=== PATIENT | male | born 1950 | race African-American/Black ===

== ENCOUNTER 2021-07-22 07:25 | Day surgery (SDC) | payer OTHER ==
--- NOTE | 2021-07-20 15:55 | RAD REPORT ---
EXAM DESCRIPTION: RAD - Chest Pa And Lat (2 Views) - 07/20/2021 3:48 pm CLINICAL HISTORY: pre op pending hernia surgery Chest pain. COMPARISON: Abdomen 1 View (KUB) dated 01/22/2019; Abdomen 1 View (KUB) dated 05/19/2017; Knee Left Wo Cont dated 08/17/2017 FINDINGS: The lungs are clear. The heart is normal in size. No displaced fractures. IMPRESSION: No acute or concerning finding suspected.
[2021-07-20 16:24] LABS: Hematocrit 37.7 % (39.6-49.0); Lymphocytes % 26.5 % (15.3-44.8); MPV 8.7 fL (7.6-11.3); RBC Red Blood Cell Count 4.93 M/uL (4.33-5.43)
[2021-07-20 16:37] LABS: Potassium 4.6 mmol/L (3.5-5.1)
[2021-07-22] MEDS ORDERED: NA CHLORIDE 0.9% 1,000 ML ONE ×2 (07:34→10:49)
[2021-07-22] MEDS ORDERED: LIDOCAINE 2% MPF 5 ML VIAL ONE (08:51)
[2021-07-22] MEDS ORDERED: MIDAZOLAM HCL 2 MG/2 ML INJ ONE (08:51)
[2021-07-22] MEDS ORDERED: ONDANSETRON 4 MG/2 ML VIAL ONE (08:51)
[2021-07-22] MEDS ORDERED: ROCURONIUM 50 MG/5 ML VIAL IV ONE (08:51)
[2021-07-22] MEDS ORDERED: propofoL 200 MG/20 ML VIAL IV ONE (08:51)
[2021-07-22] MEDS ORDERED: FENTANYL CITR 100 MCG/2 ML ONE ×2 (08:51→10:46)
[2021-07-22] MEDS ORDERED: dexAMETHasone 10 MG/ML VIAL ONE (08:51)
[2021-07-22] MEDS: CEFAZOLIN SODIUM 1 GM/VIAL ONE ×2 (09:22→09:55)
[2021-07-22] MEDS: BUPIVACAINE 0.5% Inj,MDV 50 mL VIAL ONE ×2 (09:23→10:05)
[2021-07-22] MEDS ORDERED: Ringers Lactate 0 ML IV ONE (10:24)
--- NOTE | 2021-07-22 10:53 | P.BOP ---
Preoperative diagnosis: tender incarcerated large left inguinal hernia Postoperative diagnosis: same Primary procedure: Open repair tender incarcerated large left inguinal hernia with mesh [employer]opolit[employer] Teacher: SOLOMON GASPAR (BATTERY PLATE REMOVER) Estimated blood loss: <10cc Specimen: lipoma of cord Findings: as above , Anesthesia: General Complications: None Implants: mesh plug and sheet Transferred to: Recovery Room Condition: Good
[2021-07-22] MEDS ORDERED: KETOROLAC 30 MG/ML INJ ONE (10:58)
[2021-07-22] MEDS ORDERED: NEOSTIGMINE 1 MG/ML -5 ML ONE (11:02)
[2021-07-22] MEDS ORDERED: GLYCOPYRROLATE 0.2 MG/ML SYR ONE (11:03)
[2021-07-22 13:13] VITALS: BP 165/91; O2SAT 100
[2021-07-22 13:31] VITALS: TEMP 97.4
--- NOTE | 2021-07-23 10:09 | DS ---
Date of Discharge: 07/22/2021 Diagnosis: Tender incarcerated large left inguinal hernia. Procedure: Open repair of tender incarcerated large left inguinal hernia with mesh. Disposition: Home. Activity: As tolerated. No heavy lifting. Plan: Follow up in my office. Call for appointment at [phone]. Keep area dry for 48 hours, then m ay shower. Medications: For medications, see orders. PATRICIO/HAO Voice ID: [id number] Report ID: [id number]
--- NOTE | 2021-07-23 10:15 | OP ---
Date of Procedure: 07/22/2021 Surgeon: Evans Almanza MD Top Cager: Perla Shelton. Preoperative Diagnosis: Tender incarcerated large left inguinal hernia. Postoperative Diagnosis: Tender incarcerated large left inguinal hernia. Procedure: Open repair of tender incarcerated large left inguinal hernia with mesh laparo scopic procedure. Estimated Blood Loss: Less than 10 mL. Specimen: Lipoma of the cord. Findings: Incarcerated omentum reduced into the abdominal cavity. Hernia sac was imbricated. Lipom a of the cord was ligated. Anesthesia: General plus local. Implant: Mesh, plug, and sheath. Complications: None. Estimated Blood Loss: Less than 10 mL. History Of Present Illness: This is the case of a 71-year-old patient, who comes to us with a large tender left inguinal hernia. Benefits, alternatives, and risks of laparoscopic possible open left in guinal hernia repair with mesh fully explained, which include, but not limited to infection, bleeding , damage to adjacent structures, anesthesia complication, chronic pain, chronic numbness, recurrence, GA, and even . He also understands this may not relieve any symptoms. He might need more than one surgical intervention. He also understands we may use mesh in that region. Mesh pros and cons were discussed with the patient. All questions were answered to his satisfaction and he did allow th e use of mesh. He has elected [facility] as a surgery center of choice after allowed us to select hospice over the area. Procedure In Detail: The patient was brought to the operating room, placed in supine position. Anes thesia was done without complication. Abdomen was prepped and draped in the usual sterile fashion. A time-out was called. Local anesthesia was applied in the infraumbilical region. Incision was rowell ied down to fascia. We found anterior rectus sheath fascia which basically we opened, retracted the muscle laterally to expose the posterior rectus sheath. A space maker balloon trocar was placed in t hat area, directed towards the pubis symphysis. A camera was placed in and then we started insufflat ion. The expansion of balloon was done under direct visualization. After we inspected the area of t he space that we have in that area, due to the size of the hernia most likely, it does not expand the way that I can do surgery safely through this space. So, I proceeded then to switch from laparoscop ic to open technique. The trocars were removed under direct visualization. No bleeding. The fascia was closed with #1 Vicryl and subcutaneous tissue closed with 3-0 chromic. We proceeded to obtain i nstrument count and then proceed with the incision in the left inguinal region. The incision was car ried down to Nicholas fascia until we find the external oblique aponeurosis and opened in direction of its fibers to connect to the superficial inguinal ring. The ilioinguinal nerve and iliohypogastric n erve were protected behind external oblique aponeurosis. [place] was placed around the spermatic cor d. We noticed the hernia sac was carefully imbricated after inspecting and noticed just omentum in t hat area, so we reduced the omentum, imbricated the hernia sac. The lipoma of the cord was identifie d and dissected free from the spermatic cord which structures were protected at all times. The lipom a of the cord was ligated with 0 chromic. At that moment, I proceeded then to place a mesh plug over the deep inguinal ring, secured in place with VersaTack staple device making sure once again the str uctures are protected of the spermatic cord. Then, we placed a mesh sheet on the floor of the canal connecting that to the pubic tubercle, shelving the edge of the inguinal ligament, transversalis fasc ia, and the loops around the spermatic cord without strangulation. This was fixated using VersaTack staple. No bleeding. Hernia sac is still imbricated. No bleeding. No other hernias found. At glenny t moment, I proceeded to remove the [place] placed in the ilioinguinal nerve and iliohypogastric nerv e back into the inguinal canal, reconstructed the superficial inguinal ring and closed the external o blique aponeurosis making sure there was no nerve involved. Area was irrigated. Local anesthesia wa s applied again. Then, used a 3-0 chromic for the subcutaneous tissue and guillermina for the skin. Bryon e for the umbilical area. The patient tolerated the procedure well. At the end of the case, testicl es were in the scrotum. The patient was sent to recovery in stable condition. PATRICIO/HAO Voice ID: [id number] Report ID: [id number]
== END 2021-07-22 13:18 | disposition home or self-care (01) ==
LOC: OR 07:25
PROVIDERS: ATTEND Surgery
PROC: 0YU60JZ Supplement Left Inguinal Region with Synthetic Substitute, Open Approach (ICD-10-PCS; principal; 2021-07-22 10:15)
DX: K40.30 Unilateral inguinal hernia, with obstruction, without gangrene, not specified as recurrent (principal); I10 Essential (primary) hypertension; I48.91 Unspecified atrial fibrillation; E11.9 Type 2 diabetes mellitus without complications; E78.00 Pure hypercholesterolemia, unspecified; Z20.822 Contact with and (suspected) exposure to COVID-19
CPT/HCPCS: 85025; 80048; 36415; 82947 ×2; 88302; 71046; 49507; U0003; J2704; J2250; J3010 ×2; J1100; J2710; J7030 ×2; J2405; J0690; J7120

== ENCOUNTER → 2022-07-14 | Day surgery (SDC) | payer OTHER ==
--- NOTE | 2022-06-15 13:00 | RAD REPORT ---
EXAM DESCRIPTION: RAD - FINE NEEDLE ASPIRATION 2ND LES - 06/15/2022 10:49 am CLINICAL HISTORY: 2ND LESION COMPARISON: Guided FNA Non Breast dated 06/15/2022; Thyroid Para Parotid Gland dated 05/27/2022 FINDINGS: Preoperative diagnosis: Left lobe and isthmic thyroid nodules. Post operative diagnosis: Same. Conscious Sedation: None Fluoroscopy time: None Contrast used: None Estimated blood loss: 0 mL Specimens:As below The anterior neck was prepped and draped in the usual sterile fashion. 1% lidocaine was infiltrated i nto the subcutaneous tissues for local anesthesia. Real time ultrasound scanning of the thyroid gland again demonstrated a predominantly solid isoechoic to hyperechoic taller than wide nodule at the inf erior left lobe, and a spongiform nodule within the left aspect of the isthmus. Under ultrasound guid ance, using a total of 5 25 gauge needles, attention was initially directed to the left lobe nodule. A total of 5 fine needle aspiration biopsies were obtained, and sent to pathology for evaluation. Att ention was then directed to the isthmic nodule. Under ultrasound guidance and using a total of 4 25 g auge needles, fine needle aspiration biopsies were obtained of the lesion. The patient tolerated the procedure well. There were no complications. IMPRESSION: Successful ultrasound-guided fine-needle aspiration biopsy/ cytology of the left thyroid lobe and isthmic nodules as above.
--- NOTE | 2022-06-15 13:01 | RAD REPORT ---
EXAM DESCRIPTION: US - Guided FNA Non Breast - 06/15/2022 10:07 am CLINICAL HISTORY: E04.2 COMPARISON: Guided FNA Non Breast dated 06/15/2022; Thyroid Para Parotid Gland dated 05/27/2022 FINDINGS: Preoperative diagnosis: Left lobe and isthmic thyroid nodules. Post operative diagnosis: Same. Conscious Sedation: None Fluoroscopy time: None Contrast used: None Estimated blood loss: 0 mL Specimens:As below The anterior neck was prepped and draped in the usual sterile fashion. 1% lidocaine was infiltrated i nto the subcutaneous tissues for local anesthesia. Real time ultrasound scanning of the thyroid gland again demonstrated a predominantly solid isoechoic to hyperechoic taller than wide nodule at the inf erior left lobe, and a spongiform nodule within the left aspect of the isthmus. Under ultrasound guid ance, using a total of 5 25 gauge needles, attention was initially directed to the left lobe nodule. A total of 5 fine needle aspiration biopsies were obtained, and sent to pathology for evaluation. Att ention was then directed to the isthmic nodule. Under ultrasound guidance and using a total of 4 25 g auge needles, fine needle aspiration biopsies were obtained of the lesion. The patient tolerated the procedure well. There were no complications. IMPRESSION: Successful ultrasound-guided fine-needle aspiration biopsy/ cytology of the left thyroid lobe and isthmic nodules as above.
== END ==
LOC: FNA 08:00
PROVIDERS: ATTEND Family Medicine
PROC: 0GBG3ZX Excision of Left Thyroid Gland Lobe, Percutaneous Approach, Diagnostic (ICD-10-PCS; principal; 2022-07-14)
DX: E04.2 Nontoxic multinodular goiter (principal)
CPT/HCPCS: 10006; 88162; 88305

== ENCOUNTER 2022-08-27 07:40 | Day surgery (SDC) | payer OTHER ==
--- NOTE | 2022-08-25 08:22 | EKG ---
Test Date: 2022-08-23 Test Time: 16:33:15 Hoisting Machine Operator: [id number] MEASUREMENT RESULTS: Intervals: Rate: 85 WY: 180 QRSD: 90 QT: 354 QTc: 421 [place]: P: 60 WY: 180 QRS: -37 T: 23 INTERPRETIVE STATEMENTS: Normal sinus rhythm Left axis deviation Abnormal ECG Compared to ECG 02/10/2016 15:22:15 Left-axis deviation now present Fusion complex(es) no longer present Left anterior fascicular block no longer present Electronically Signed On 08-25-22 08:18:15 CDT by Nir Farrell
[2022-08-27] MEDS ORDERED: NA CHLORIDE 0.9% 1,000 ML ONE (08:02)
[2022-08-27] MEDS ORDERED: propofoL 200 MG/20 ML VIAL IV ONE ×2 (09:28→10:33)
[2022-08-27] MEDS ORDERED: FENTANYL CITR 100 MCG/2 ML ONE ×2 (09:28→10:35)
[2022-08-27] MEDS ORDERED: ONDANSETRON 4 MG/2 ML VIAL ONE (09:28)
[2022-08-27] MEDS ORDERED: ROCURONIUM 50 MG/5 ML VIAL IV ONE (09:32)
[2022-08-27] MEDS ORDERED: LIDOCAINE HCL/EPINEPHRINE 20 ML MDV ONE (09:38)
[2022-08-27] MEDS ORDERED: SUCCINYLCHOLINE 20 MG/ML (10 ML) IV ONE (09:43)
[2022-08-27] MEDS ORDERED: GLYCOPYRROLATE 0.2 MG/ML SYR ONE (11:08)
[2022-08-27] MEDS ORDERED: Phenylephrine HCl 10 MG/ML 1 ML VIAL ONE (11:09)
[2022-08-27] MEDS ORDERED: NS 0.9% VIAL 10 ML ONE (11:09)
[2022-08-27] MEDS: NA CHLORIDE 0.9% 1,000 ML ONE ×2 (11:40→11:57)
[2022-08-27] MEDS ORDERED: Mastisol Adhesive Liq ONE (11:41)
--- NOTE | 2022-08-27 12:19 | P.OP ---
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 The neck was palpated with confirmation of the isthmus nodule but the left mass was difficult to discern. The neck was cleaned with alcohol and the planned incision site was injected with 3ml of 1% lidocaine with epinephrine. The neck was prepped with Betadine and draped in a sterile fashion. A 4-5 cm low collar incision was made through the skin with a 15 blade scalpel and the subcutaneous fat and platysma was divided with bovie electrocuatery. The subplatysmal flaps were elevated with blunt dissection and bovie cautery. The strap muscles were identified in the midline and retracted laterally on the left. The 1.5cm isthmus nodule was identified and the soft tissues elevated from the left thyroid lobe laterally and along the inferior pole using blunt dissection and the Ligasure. The superior aspect of the isthmus included a moderate sized pyramidal lobe which was carefully dissection and included with the specimen. The [place] was used to retract the left strap muscles and the left thyroid was noted to wrap posteriorly. The superior pole was identified and seemed to include a palpable nodule of about 1cm. The Ligasure was used to dissection and free the superior pole. Attention was then turned to the isthmus with decision to include this nodule in the specimen. The soft tissue attachments above and below the isthmus were divided and the isthmus was divided with the [place] on the right side of the nodule. The isthmus was elevated off the anterior wall of the trachea using Ligasure. The thyroid lobe was then carefully dissected in the area of Rojas's ligament, with Ligasure of the thyroid tissue to avoid injury to the recurrent laryngeal nerve. The specimen was then elevated from posterior soft tissue attachments, taking care to leave the visualized superior parathyroid gland in situ. After removal, the surgical cavity was thoroughly irrigated with sterile saline and suction. Careful inspection revealed no evidence of additional bleeding. Palpation of the right thyroid revealed no concerning or firm masses. During the course of dissection, the left recurrent laryngeal nerve was not specifically identified. A careful inspection revealed areas of fascia and soft tissue. I elected to avoid dissection in the interest of avoiding injury at this point in the case. A 10 English round IZABELA drain was placed in the left neck. A single Vicryl suture was used to approximate the strap muscles in the midline. The incision was closed in a layered fashion using 4-0 Vicryl deep sutures and Monocryl subcuticular sutures. The incision was then cleaned and dressed with Mastisol and Steri-Strips. Due to the patient's comorbid medical conditions including atrial fibrillation requiring anticoagulation, he has an increased risk of bleeding and will be placed under observation overnight. If the patient does well he will be discharged in the morning. Complications: None Drain(s): IZABELA drain Transferred to: Recovery Room Condition: Good
[2022-08-27] MEDS: HYDROMORPHONE HCL 1 MG/ML INJ ONE ×2 (12:25→12:30)
[2022-08-27 14:14] VITALS: BMI 32.0
[2022-08-27] MEDS: NA CHLORIDE 0.9% 1,000 ML IV SCH ×2 (15:05→23:00)
[2022-08-27] MEDS ORDERED: TRAMADOL HCL 50 MG TAB PO PRN (15:55)
[2022-08-27] MEDS ORDERED: GLUCAGON 1 MG/VIAL IM PRN (16:01)
[2022-08-27] MEDS ORDERED: D50W 25 GM/50 ML SYRINGE IV PRN (16:01)
--- NOTE | 2022-08-27 16:07 | P.CNS ---
Date of Consult: 08/27/22 Reason for Consult: Medical management Requesting Physician: Flory Acosta Chief Complaint: s/p Left hemithyroidectomy & isthmusectomy History of Present Illness: Patient is a 72yo who Has an extensive cardiac history who presented to the hospital for an elective hemithyroidectomy.Patient was found in the outpatient setting to have a couple of thyroid nodules that were being worked up for malignancy. Patient has a history of atrial fibrillation, HTN, and DM2. Patient is on antihypertensives therapy and anticoagulation. Patient also has a history of diabetes and is on oral hypoglycemic agents which we will resume. Patient denies any shortness of breath. Patient has done well postoperatively. He has mild complaints of pain but he is really quiet and not really saying much at this time. His states that this is his baseline mannerism. We will continue to monitor patient overnight. Resume most of his home medications at this time but will hold off on anticoagulants pending his labs. If everything looks good tomorrow then we should be able to resume anticoagulation in a.m. Allergies No Known Allergies Allergy (Verified 08/27/22 11:52) Home Medications: Atorvastatin Calcium [Lipitor] 20 mg PO BEDTIME 02/10/16 Metformin HCl [Glucophage] 1,000 mg PO BID 02/10/16 Nateglinide [Starlix] 120 mg PO TID 02/10/16 Carvedilol [Coreg] 12.5 mg PO BID 07/20/21 Irbesartan 150 mg PO BID 07/20/21 Rivaroxaban [Xarelto] 20 mg PO DAILY 07/20/21 Verapamil HCl [Verelan Pm] 300 mg PO DAILY 07/20/21 glipiZIDE [Glipizide] 10 mg PO BID 07/20/21 Levothyroxine [Synthroid] 0.112 mg PO DAILY 08/23/22 - Past Medical/Surgical History Diabetic: Yes -: hypertension -: hypothyroidism -: dyslipidemia -: atrial fibrillation Past Surgical History: Patient denies surgical history - Family History Father Family History: Reviewed- Non-Contributory - Social History Smoking Status: Former smoker Alcohol use: Yes CD- Drugs: No Place of Residence: Home Review of Systems 10-point ROS is otherwise unremarkable Physical Examination Temp Pulse Resp BP Pulse Ox 97.9 F 75 16 155/77 H 08/27/22 13:07 08/27/22 13:07 08/27/22 13:07 08/27/22 13:07 General: Alert, In no apparent distress, Oriented x3 HEENT: Atraumatic, PERRLA, Mucous membr. moist/pink, EOMI, Sclerae nonicteric Neck: Supple, 2+ carotid pulse no bruit, No LAD, Other (IZABELA drain in place), Without JVD or thyroid abnormality Respiratory: Clear to auscultation bilaterally, Normal air movement Cardiovascular: Regular rate/rhythm, Normal S1 S2 Gastrointestinal: Normal bowel sounds, No tenderness Musculoskeletal: No tenderness Integumentary: No rashes Neurological: Normal gait, Normal speech, Normal tone, Normal affect Lymphatics: No axilla or inguinal lymphadenopathy - Problems (1) S/P partial thyroidectomy Current Visit: Yes Status: Acute (2) Thyroid nodule Current Visit: Yes Status: Acute (3) Atrial fibrillation Current Visit: Yes Status: Acute (4) HTN (hypertension) Current Visit: Yes Status: Acute (5) DM2 (diabetes mellitus, type 2) Current Visit: Yes Status: Acute Conclusions/ Impression: Plan: 1. Resume antihypertensive and hypoglycemic agents 2. Resume anticoagulation in 24 to 48 hours 3. Monitor labs in a.m. 4. Anticipate discharge with outpatient follow-up with ENT for biopsy results 5. Encourage patient to get out of bed into a chair today and start ambulating in the morning 6. GI DVT prophylaxis as needed Critical Care: No Time Spent Managing Pts care (In Minutes): 40
[2022-08-27] MEDS ORDERED: D10W 125 ML IV PRN (16:12)
[2022-08-27] MEDS ORDERED: carvediloL 12.5 MG TAB PO SCH (17:00)
[2022-08-27] MEDS ORDERED: METFORMIN HCL 500 MG TAB PO SCH (17:00)
[2022-08-27] MEDS: INSULIN -REGULAR HUMAN 50 UNIT/0.5 ML ML SQ SCH ×2 (18:09→20:39)
[2022-08-27] MEDS ORDERED: VALSARTAN 80 MG TAB PO SCH (21:00)
[2022-08-27] MEDS ORDERED: glipiZIDE 5 MG TAB PO SCH (21:00)
[2022-08-27] MEDS ORDERED: ATORVASTATIN 20 MG TAB PO SCH (21:00)
[2022-08-27 22:39] VITALS: O2SAT 98
[2022-08-28] MEDS ORDERED: LEVOTHYROXINE SOD 0.112 MG TAB PO SCH (06:30)
[2022-08-28 06:39] LABS: Absolute Lymphocytes (CBC) 2.2 K/uL (0.7-4.9); Hematocrit 34.6 % (39.6-49.0); Lymphocytes % 28.7 % (15.3-44.8); MCV 76.6 fL (80-100); MPV 8.6 fL (7.6-11.3); RBC Red Blood Cell Count 4.52 M/uL (4.33-5.43)
[2022-08-28 06:47] LABS: Protime INR 1.14
[2022-08-28 06:53] LABS: Magnesium 1.5 mg/dL (1.6-2.4); Phosphorus 3.2 mg/dL (2.5-4.9); Potassium 3.7 mEq/L (3.5-5.1)
[2022-08-28] MEDS ORDERED: Magnesium Sulfate 2gm IVPB 2 G/50 ML BAG IV ONE (06:54)
--- NOTE | 2022-08-28 07:32 | P.PN ---
Date of Service: 08/28/22 POD 1 L hemithyroidectomy. No complaints. No overnight events. No PO or IV pain medications overnight. Bal PO including crackers and solid foods and liquids. NAD. Neck flat and incision C/D/I with steristrips. Mild to minimal TTP. IZABELA with scant serosanginous fluid and total output 60ml since surgery. Strong voice without breathiness. Vitals stable. Labs reviewed - blood sugars elevated and some anemia - patient/ notified and will defer to outpatient/PCP evaluation. A: Stable s/p hemithyroidectomy P: D/C home today. Resume home meds including anticoagulants. FU with Dr Story on Tuesday for drain removal as scheduled. Plan OTC/Tylenol PRN pain and contact Dr Acosta if any stronger medication in needed.
[2022-08-28 08:06] VITALS: BP 136/56; TEMP 97.9
[2022-08-28] MEDS ORDERED: RIVAROXABAN 20 MG TABLET PO SCH (09:00)
[2022-08-28] MEDS ORDERED: VERAPAMIL HCL 300 MG PO SCH (09:00)
[2022-08-29] MEDS ORDERED: RIVAROXABAN 20 MG TABLET PO SCH (09:00)
== END 2022-08-28 08:30 | disposition home or self-care (01) ==
LOC: OR 07:40 → 4TH 13:07 → OR 08-28 08:30
PROVIDERS: ATTEND Otolaryngology
PROC: 0GTJ0ZZ Resection of Thyroid Gland Isthmus, Open Approach (ICD-10-PCS; 2022-08-27)
PROC: 0GTG0ZZ Resection of Left Thyroid Gland Lobe, Open Approach (ICD-10-PCS; principal; 2022-08-27 09:00)
DX: E04.1 Nontoxic single thyroid nodule (principal)
CPT/HCPCS: 60225; 93005; 85025; 80048; 36415; 83735; 84100; 85610; 82947 ×6; 88307; 85730; J1815 ×2; A4216; J2704 ×2; J2370; J3010 ×2; J1170; J2405; J7030 ×3

== ENCOUNTER 2023-09-06 15:41 | Inpatient (IN) | payer OTHER ==
--- OUTSIDE RECORDS SUMMARY | 2023-09-06 15:45 | XMS REPORT | Continuity of Care Document ---
Author Name Unknown Address [address] [facility] [place] [address] [facility] thconnect Address [address] [facility] [address] [place] [address] Care Team Providers Care Horse Racing Manager Name Role Phone Titus Hernandez Attending Clinician UnavailTitus Lantigua Admitting Clinician Kash scruggs Payers Payer Name Policy Type Policy Number Effective Date Expirati on Date Source Allergies, Adverse Reactions, Alerts Allergy Name Allergy Type Status Severity Reaction(s) Onset Date Inactive Date Treating Clinician Comments Source No Known Drug Allergie s DA Active U 09-26 00:00: 00 [facility] No Known Drug Allergie s DA Active U 09-26 00:00: 00 [facility] No Known Drug Allergie s DA Active U 0 09-22 00:00: 00 [facility] Encounters Start Date/Time End Date/Time Encounter Type Admission Type Attending Clinicians Care Facility Care Department Encounter ID Source 2021-02-02 06:26:00 2021-02-03 10:49:00 Inpatient Titus Sol TELE [id number] [facility] 2021-02-02 06:26:00 2021-02-03 10:49:00 Inpatient Titus Sol TELE [id number] [facility] Results Test Description Test Time Test Comments Results Result Co mments Source GLUCOSE BEDSIDE [id number] 08:05:00* Test Item Value Reference Range Interpretation Comme nts GLUCOSE BEDSIDE TESTING ([place] t code = GLUBED) 253 MG/DL 60-99 H GLUCOSE BEDSIDE [id number] 07:46:00* Test Item Value Reference Range Interpretation Comme nts GLUCOSE BEDSIDE TESTING ([place] t code = GLUBED) 302 MG/DL 60-99 HH BASIC METABOLIC [id number] 05:47:00* Test Item Value Reference Range Interpretation Comme nts SODIUM (test code = NA) 136 MMOL/L 137-145 L POTASSIUM (test code = K) 4.3 MMOL/L 3.5-5.1 N CHLORIDE (test code = CL) 108 MMOL/L 98-107 H CARBON DIOXIDE (test code = CO2) 23 MMOL/L 22-30 N ANION GAP (test code = GAP) 9 MMOL/L 14-24 L GLUCOSE (test code = GLU) 288 MG/DL 74-106 H BLOOD UREA NITROGEN (test code = BUN) 15 MG/DL 9-20 N GLOMERULAR FILTRATION RATE (test code = GFR) > 60 Reporting units: ml/min/1.73 m2 (Modified MDRD Formula)Reference Range: > or = 60 ml/min/1.73 m2 CREATININE (test code = CREAT) 1.00 MG/DL 0.66-1.25 N CALCIUM (test code = CA) 8.4 MG/DL 8.4-10.2 N CBC W/AUTO [id number] 05:38:00* Test Item Value Reference Range Interpretation Comme nts WHITE BLOOD CELL (test code = WBC) 9.8 K/MM3 3.8-9.8 N RED BLOOD CELL (test code = RBC) 4.56 M/MM3 3.95-5.67 N HEMOGLOBIN (test code = HGB) 10.9 G/DL 12.4-16.7 L HEMATOCRIT (test code = HCT) 35.7 % 35.9-49.5 L MEAN CELL VOLUME (test code = MCV) 78 fL 81.7-96.1 L MEAN CELL HGB (test code = MCH) 23.9 pg 27.6-33.2 L MEAN CELL HGB CONCETRATION (test code = MCHC) 30.5 % 32.9-35.5 L RED CELL DISTRIBUTION WIDTH (test code = RDW) 14.2 % 12.1-15.2 N PLATELET COUNT (test code = PLT) 224 K/MM3 129-368 N MEAN PLATELET VOLUME (test c ode = MPV) 11.2 fl 7.4-10.4 H NEUTROPHIL % (test code = NT%) 72.2 % 43-75 N IMMATURE GRANULOCYTE % (test code = IG%) 0.4 % 0.0-2.0 N LYMPHOCYTE % (test code = LY%) 16.9 % 14-44 N MONOCYTE % (test code = MO%) 10.1 % 4-13 N EOSINOPHIL % (test code = EO%) 0.1 % 0-6 N BASOPHIL % (test code = BA%) 0.3 % 0-2 N NUCLEATED RBC % (test code = NRBC%) 0.0 % 0-1.0 N NEUTROPHIL # (test code = NT#) 7.04 K/mm3 2.0-7.6 N IMMATURE GRANULOCYTE # (test code = IG#) 0.04 x10 3/uL 0-0.03 H LYMPHOCYTE # (test code = LY#) 1.65 K/mm3 1.0-3.8 N MONOCYTE # (test code = MO#) 0.98 K/mm3 0.1-0.8 H EOSINOPHIL # (test code = EO#) 0.01 K/mm3 0.0-0.2 N BASOPHIL # (test code = BA#) 0.03 K/mm3 0.0-0.2 N NUCLEATED RBC # (test code = NRBC#) 0.00 K/mm3 0.0-0.1 N GLUCOSE BEDSIDE [id number] 20:09:00* Test Item Value Reference Range Interpretation Comme nts GLUCOSE BEDSIDE TESTING ([place] t code = GLUBED) 219 MG/DL 60-99 H GLUCOSE BEDSIDE [id number] 15:40:00* Test Item Value Reference Range Interpretation Comme nts GLUCOSE BEDSIDE TESTING ([place] t code = GLUBED) 254 MG/DL 60-99 H [id number] 11:42:00* Test Item Value Reference Range Interpretation Comme nts ACT-ISTAT (test code = ACTI) 350 SEC 74-137 H [id number] 11:16:00* Test Item Value Reference Range Interpretation Comme nts ACT-ISTAT (test code = ACTI) 350 SEC 74-137 H [id number] 10:53:00* Test Item Value Reference Range Interpretation Comme [facility] ACT-ISTAT (test code = ACTI) 362 SEC 74-137 H BASIC METABOLIC [id number] 07:11:00* Test Item Value Reference Range Interpretation Comme nts SODIUM (test code = NA) 139 MMOL/L 137-145 N POTASSIUM (test code = K) 3.8 MMOL/L 3.5-5.1 N CHLORIDE (test code = CL) 106 MMOL/L 98-107 N CARBON DIOXIDE (test code = CO2) 26 MMOL/L 22-30 N GLUCOSE (test code = GLU) 195 MG/DL 74-106 H BLOOD UREA NITROGEN (test code = BUN) 13 MG/DL 9-20 N GLOMERULAR FILTRATION RATE (test code = GFR) > 60 Reporting units: ml/min/1.73 m2 (Modified MDRD Formula)Reference Range: > or = 60 ml/min/1.73 m2 CREATININE (test code = CREAT) 1.00 MG/DL 0.66-1.25 N CALCIUM (test code = CA) 9.3 MG/DL 8.4-10.2 N Is this a LINE draw? [id number] 07:11:00* Test Item Value Reference Range Interpretation Comme [facility] MAGNESIUM (test code = MAG) 1.5 MG/DL 1.6-2.3 L Is this a LINE draw? NPTT [id number] 07:04:00* Test Item Value Reference Range Interpretation Comme [facility] PTT ACTIVATED (test code = APTT) 35.2 SECONDS 25.1-36.5 N PROTHROMBIN [id number] 07:04:00* Test Item Value Reference Range Interpretation Comme [facility] PROTHROMBIN TIME PATIENT (test code = PTP) 12.3 SECONDS 9.5-12.7 N INTERNATIONAL NORMAL RATIO (test code = INR) 1.1 0.86-1.14 N The INR is to be used only for monitoring oral anticoagulanttherap y. INDICATION INR VALUE -------1. Prophylaxis, deep venous thrombosis, including high risk surgery. 2.0 - 3.0 2. Prophylaxis, deep venous thrombosis, hip surgery, treatment for deep venous thrombosis or pulmonary prevention of systemic embolism in patients with valvular heart disease, atrial fibrillation, tissue heart valve, or acute myocardial infarction. 2.0 - 3.0 3. Mechanical prosthesis heart valves, recurrent systemic embolism. 3.0 - 4.5 CBC W/AUTO [id number] 06:51:00* Test Item Value Reference Range Interpretation Comme nts WHITE BLOOD CELL (test code = WBC) 7.4 K/MM3 3.8-9.8 N RED BLOOD CELL (test code = RBC) 4.83 M/MM3 3.95-5.67 N HEMOGLOBIN (test code = HGB) 11.4 G/DL 12.4-16.7 L HEMATOCRIT (test code = HCT) 37.9 % 35.9-49.5 N MEAN CELL VOLUME (test code = MCV) 79 fL 81.7-96.1 L MEAN CELL HGB (test code = MCH) 23.6 pg 27.6-33.2 L MEAN CELL HGB CONCETRATION (test code = MCHC) 30.1 % 32.9-35.5 L RED CELL DISTRIBUTION WIDTH (test code = RDW) 14.2 % 12.1-15.2 N PLATELET COUNT (test code = PLT) 254 K/MM3 129-368 N MEAN PLATELET VOLUME (test c ode = MPV) 11.1 fl 7.4-10.4 H NEUTROPHIL % (test code = NT%) 52.9 % 43-75 N IMMATURE GRANULOCYTE % (test code = IG%) 0.3 % 0.0-2.0 N LYMPHOCYTE % (test code = LY%) 30.4 % 14-44 N MONOCYTE % (test code = MO%) 8.9 % 4-13 N EOSINOPHIL % (test code = EO%) 6.3 % 0-6 H BASOPHIL % (test code = BA%) 1.2 % 0-2 N NUCLEATED RBC % (test code = NRBC%) 0.0 % 0-1.0 N NEUTROPHIL # (test code = NT#) 3.92 K/mm3 2.0-7.6 N IMMATURE GRANULOCYTE # (test code = IG#) 0.02 x10 3/uL 0-0.03 N LYMPHOCYTE # (test code = LY#) 2.25 K/mm3 1.0-3.8 N MONOCYTE # (test code = MO#) 0.66 K/mm3 0.1-0.8 N EOSINOPHIL # (test code = EO#) 0.47 K/mm3 0.0-0.2 H BASOPHIL # (test code = BA#) 0.09 K/mm3 0.0-0.2 N NUCLEATED RBC # (test code = NRBC#) 0.00 K/mm3 0.0-0.1 N Is this a LINE draw? NCOVID 19 Asymptomatic IH [id number] 12:25:00* Test Item Value Reference Range Interpretation Comme nts COVID 19 Asymptomatic IH AG (test code = COVNONPUIAG) NEGATIVE Negative "Negative result s from patients with symptom onset beyondfive days, should be treated as presumptive, andconfirmation with a molecular assay, if necessary forpatient management may be performed. Negative results do notrule out COVID-19 and should not be used as the sole basisfor treatment or patient management decisions, includinginfection control decisions. Negative results should beconsidered in the context of a patients recent exposures,history, and the presence of clinical signs and symptomsconsistent with COVID-19.This test detects both viable andnon-viable SARS-CoV and SARS CoV-2.Test performance dependson the amount of virus (antigen) in the sample." BASIC METABOLIC [id number] 07:29:00* Test Item Value Reference Range Interpretation Comme nts SODIUM (test code = NA) 137 MMOL/L 137-145 N POTASSIUM (test code = K) 4.1 MMOL/L 3.5-5.1 N CHLORIDE (test code = CL) 104 MMOL/L 98-107 N CARBON DIOXIDE (test code = CO2) 25 MMOL/L 22-30 N GLUCOSE (test code = GLU) 212 MG/DL 74-106 H BLOOD UREA NITROGEN (test code = BUN) 14 MG/DL 9-20 N GLOMERULAR FILTRATION RATE (test code = GFR) > 60 Reporting units: ml/min/1.73 m2 (Modified MDRD Formula)Reference Range: > or = 60 ml/min/1.73 m2 CREATININE (test code = CREAT) 1.10 MG/DL 0.66-1.25 N CALCIUM (test code = CA) 9.5 MG/DL 8.4-10.2 N CBC W/AUTO [id number] 07:09:00* Test Item Value Reference Range Interpretation Comme nts WHITE BLOOD CELL (test code = WBC) 6.9 K/MM3 3.8-9.8 N RED BLOOD CELL (test code = RBC) 4.85 M/MM3 3.95-5.67 N HEMOGLOBIN (test code = HGB) 11.9 G/DL 12.4-16.7 L HEMATOCRIT (test code = HCT) 37.9 % 35.9-49.5 N MEAN CELL VOLUME (test code = MCV) 78 fL 81.7-96.1 L MEAN CELL HGB (test code = MCH) 24.5 pg 27.6-33.2 L MEAN CELL HGB CONCETRATION (test code = MCHC) 31.4 % 32.9-35.5 L RED CELL DISTRIBUTION WIDTH (test code = RDW) 14.9 % 12.1-15.2 N PLATELET COUNT (test code = PLT) 218 K/MM3 129-368 N MEAN PLATELET VOLUME (test c ode = MPV) 10.7 fl 7.4-10.4 H NEUTROPHIL % (test code = NT%) 53.5 % 43-75 N IMMATURE GRANULOCYTE % (test code = IG%) 0.1 % 0.0-2.0 N LYMPHOCYTE % (test code = LY%) 24.9 % 14-44 N MONOCYTE % (test code = MO%) 12.5 % 4-13 N EOSINOPHIL % (test code = EO%) 8.4 % 0-6 H BASOPHIL % (test code = BA%) 0.6 % 0-2 N NUCLEATED RBC % (test code = NRBC%) 0.0 % 0-1.0 N NEUTROPHIL # (test code = NT#) 3.69 K/mm3 2.0-7.6 N IMMATURE GRANULOCYTE # (test code = IG#) 0.01 x10 3/uL 0-0.03 N LYMPHOCYTE # (test code = LY#) 1.72 K/mm3 1.0-3.8 N MONOCYTE # (test code = MO#) 0.86 K/mm3 0.1-0.8 H EOSINOPHIL # (test code = EO#) 0.58 K/mm3 0.0-0.2 H BASOPHIL # (test code = BA#) 0.04 K/mm3 0.0-0.2 N NUCLEATED RBC # (test code = NRBC#) 0.00 K/mm3 0.0-0.1 N GLUCOSE BEDSIDE [id number] 06:26:00* Test Item Value Reference Range Interpretation Comme nts GLUCOSE BEDSIDE TESTING ([place] t code = GLUBED) 173 MG/DL 60-99 H GLUCOSE BEDSIDE [id number] 20:52:00* Test Item Value Reference Range Interpretation Comme nts GLUCOSE BEDSIDE TESTING ([place] t code = GLUBED) 128 MG/DL 60-99 H GLUCOSE BEDSIDE [id number] 17:32:00* Test Item Value Reference Range Interpretation Comme nts GLUCOSE BEDSIDE TESTING ([place] t code = GLUBED) 254 MG/DL 60-99 H BASIC METABOLIC [id number] 07:33:00* Test Item Value Reference Range Interpretation Comme nts SODIUM (test code = NA) 137 MMOL/L 137-145 N POTASSIUM (test code = K) 4.5 MMOL/L 3.5-5.1 N CHLORIDE (test code = CL) 100 MMOL/L 98-107 N CARBON DIOXIDE (test code = CO2) 28 MMOL/L 22-30 N GLUCOSE (test code = GLU) 208 MG/DL 74-106 H BLOOD UREA NITROGEN (test code = BUN) 20 MG/DL 9-20 N GLOMERULAR FILTRATION RATE (test code = GFR) > 60 Reporting units: ml/min/1.73 m2 (Modified MDRD Formula)Reference Range: > or = 60 ml/min/1.73 m2 CREATININE (test code = CREAT) 1.10 MG/DL 0.66-1.25 N CALCIUM (test code = CA) 9.8 MG/DL 8.4-10.2 N [id number] 07:33:00* Test Item Value Reference Range Interpretation Comme nts MAGNESIUM (test code = MAG) 1.6 MG/DL 1.6-2.3 N PROTHROMBIN [id number] 07:20:00* Test Item Value Reference Range Interpretation Comme nts PROTHROMBIN TIME PATIENT (test code = PTP) 10.3 SECONDS 9.6-11.6 N INTERNATIONAL NORMAL RATIO (test code = INR) 1.0 0.8-1.1 N The INR is to be used only for monitoring oral anticoagulanttherap y. INDICATION INR VALUE -------1. Prophylaxis, deep venous thrombosis, including high risk surgery. 2.0 - 3.0 2. Prophylaxis, deep venous thrombosis, hip surgery, treatment for deep venous thrombosis or pulmonary prevention of systemic embolism in patients with valvular heart disease, atrial fibrillation, tissue heart valve, or acute myocardial infarction. 2.0 - 3.0 3. Mechanical prosthesis heart valves, recurrent systemic embolism. 3.0 - 4.5 PTT [id number] 07:20:00* Test Item Value Reference Range Interpretation Comme nts PTT ACTIVATED (test code = APTT) 27.2 SECONDS 22.0-33.0 N CBC W/AUTO [id number] 07:07:00* Test Item Value Reference Range Interpretation Comme nts WHITE BLOOD CELL (test code = WBC) 7.8 K/MM3 3.8-9.8 N RED BLOOD CELL (test code = RBC) 5.07 M/MM3 3.95-5.67 N HEMOGLOBIN (test code = HGB) 12.6 G/DL 12.4-16.7 N HEMATOCRIT (test code = HCT) 40.2 % 35.9-49.5 N MEAN CELL VOLUME (test code = MCV) 79 fL 81.7-96.1 L MEAN CELL HGB (test code = MCH) 24.9 pg 27.6-33.2 L MEAN CELL HGB CONCETRATION (test code = MCHC) 31.3 % 32.9-35.5 L RED CELL DISTRIBUTION WIDTH (test code = RDW) 15.0 % 12.1-15.2 N PLATELET COUNT (test code = PLT) 272 K/MM3 129-368 N MEAN PLATELET VOLUME (test c ode = MPV) 11.3 fl 7.4-10.4 H NEUTROPHIL % (test code = NT%) 51.7 % 43-75 N IMMATURE GRANULOCYTE % (test code = IG%) 0.4 % 0.0-2.0 N LYMPHOCYTE % (test code = LY%) 24.3 % 14-44 N MONOCYTE % (test code = MO%) 12.9 % 4-13 N EOSINOPHIL % (test code = EO%) 9.7 % 0-6 H BASOPHIL % (test code = BA%) 1.0 % 0-2 N NUCLEATED RBC % (test code = NRBC%) 0.0 % 0-1.0 N NEUTROPHIL # (test code = NT#) 4.02 K/mm3 2.0-7.6 N IMMATURE GRANULOCYTE # (test code = IG#) 0.03 x10 3/uL 0-0.03 N LYMPHOCYTE # (test code = LY#) 1.89 K/mm3 1.0-3.8 N MONOCYTE # (test code = MO#) 1.00 K/mm3 0.1-0.8 H EOSINOPHIL # (test code = EO#) 0.75 K/mm3 0.0-0.2 H BASOPHIL # (test code = BA#) 0.08 K/mm3 0.0-0.2 N NUCLEATED RBC # (test code = NRBC#) 0.00 K/mm3 0.0-0.1 N Notes Date/Time Note Provider Source 2021-02-03 16:30:00 [id number]:30:[id number] [address] PATIENT NAME: DERIAN KASPER ADMIT DATE: 02/02/21ACCOUNT NO: [id number] ROOM NO: [facility] AGE: 70 REPORT TYPE: eTRANSESOPHAGEAL ECHO SEX: M ADMITTING PHYSICIAN:Titus Hernandez MD ATTENDING PHYSICIAN:Titus Hernandez MD *[facility]*[address] [place] [id number] Transesophageal Echocardiogram Patient: Derian KasperStudy Date: 02/02/2021 BP: [id number] 1950 Age: 70 Height: / Gender: M Weight: /BMI/BSA: / *Ordering Physician: * Titus Hernandez MD *Interpreting Physician: * Titus Hernandez MD*Pellet Machine Operator: * Flory Nava RDCS, RVT Indications: PVI, EVAL WILLIE. Study data: Consent: The risks, benefits, and alternatives to theprocedure were explained to the patient and informed consent wasobtained. Procedure: Initial setup: The patient was brought to thelaboratory in the fasting state.Intravenous access was obtained. SurfaceECG leads and pulse oximetric signals were monitored. Sedation. Moderatesedation was administered by cardiology staff. Transesophagealechocardiography was performed. Topical anesthesia was obtained usingviscous lidocaine. A transesophageal probe (SN: [id number]) was inserted bythe attending breakfast host without difficulty. Images were obtainedusing a [employer] cardiac ultrasound machine. Image quality was adequate.Complete 2D, complete spectral Doppler, and color Doppler. Location:Catheterization laboratory. Patient status: Outpatient. Patient roomnumber: 3. Study status: Scheduled. Study completion: The patienttolerated the procedure well. There were no complications. Findings PATIENT NAME: DERIAN KASPER [id number] [place] [address] PATIENT NAME: DERIAN KASPER ADMIT DATE: 02/02/21ACCOUNT NO: [id number] ROOM NO: Z.362 AGE: 70 REPORT TYPE: eTRANSESOPHAGEAL ECHO SEX: M ADMITTING PHYSICIAN:Titus Hernandez MD ATTENDING PHYSICIAN:Titus Hernandez MD Left ventricle: The cavity size is normal. Systolic function is normal.Right ventricle: The cavity size is normal. Systolic function isnormal.Ventricular septum: The ventricular septum is normal.Left atrium: The atrium is normal in size. The appendage is of normalsize. Emptying velocity is normal. There is no evidence of a thrombusin the atrial cavity or appendage. No spontaneous echo contrast isobserved.Right atrium: The atrium is normal in size. There is no evidence of athrombus in the atrial cavity or appendage.Atrial septum: No defect or patent foramen ovale is identified.Aorta: The ascending aorta is normal.Aortic valve: The valve is structurally normal. The valve istrileaflet. Cusp separation is normal. There is no evidence ofstenosis. There is no regurgitation.Mitral valve: The valve is structurally normal. There is mildregurgitation.Tricuspid valve: The valve is structurally normal. There is nosignificant regurgitation.Pulmonic valve: The valve is structurally normal. There is noregurgitation.Pericardium: There is no pericardial effusion. Conclusions Summary: 1. Left ventricle: The cavity size is normal. Systolic function is normal.2. Left atrium: There is no evidence of a thrombus in the atrial cavity or appendage. No spontaneous echo contrast is observed.3. Mitral valve: There is mild regurgitation.4. Pericardium, extracardiac: There is no pericardial effusion. Prepared and electronically signed by Titus Hernandez MD02/03/2021 16:30 PATIENT NAME: DERIAN KASPER [phone] [address] PATIENT NAME: DERIAN KASPER ADMIT DATE: 02/02/21ACCOUNT NO: [id number] ROOM NO: Z.362 AGE: 70 REPORT TYPE: eTRANSESOPHAGEAL ECHO SEX: M ADMITTING PHYSICIAN:Titus Hernandez MD ATTENDING PHYSICIAN:Titus Hernandez MD at 1630 PATIENT NAME: DERIAN KASPER [id number]:30:00Z.[id number] ilable for patient [id number]:31:14 [facility] 2021-02-03 07:49:00 [id number]+[id number]:49:22638 3-[address] [address] PATIENT NAME: DERIAN KASPER ADMIT DATE: 02/02/21ACCOUNT NO: [id number] ROOM NO: Z.362 AGE: 70 REPORT TYPE: ELECTROCARDIOGRAM SEX: M ADMITTING PHYSICIAN:Titus Hernandez MD ATTENDING PHYSICIAN:Titus Hernandez MD Order:[id number] Reason : PAFIB Test Date/Time Stamp:TueFeb 03 2021 07:49:30Blood Pressure : / mmHGVent. Rate : 093 BPM Atrial Rate : 093 BPM P-R Int : 172 ms QRS Dur : 096 ms QT Int : 362 ms P-R-T Axes : 055 -52 053 degrees QTc Int : 450 ms Normal sinus rhythmLeft anterior fascicular blockAbnormal ECGWhen compared with ECG of 02-FEB-2021 06:41,No significant change was foundConfirmed by TARA MANTILLA ([id number]) on 02/03/2021 10:17:15 AM Referred By: Titus Hernandez Confirmed by:TARA MANTILLA at 1017 PATIENT NAME: DERIAN KASPER .[id number] AVAvailable for patient [id number]:17:38 [facility] 2021-02-03 06:43:00 [id number]+[id number]/[id number]:43:00 [facility] NoteREPORT#:[id number] REPORT STATUS: SignedDATE:02/03/21 TIME: 0643 PATIENT: DERIAN KASPER UNIT #: [id number]#: [id number] [facility] [birth year] AGE: 70 SEX: M ATTEND: Titus Hernandez [facility] AUTHOR: Titus Hernandez MD * ALL edits or amendments must be made on the electronic/computer document * SubjectiveChief Complaint:AFIBPatient reports:No: chest pain, palpitations, shortness of breath. Objective GeneralVS/I O:24 hour I O ending at 0700: 02/03 0700 02/02 1900 Intake Total 150.00 120 Output Total Balance 150.00 120 Intake, IV 150.00 Intake, Oral 120 Patient 121 kg Weight Weight Bed scale Measurement Method Vital Signs: Date Time Temp Pulse Resp B/P B/P Pulse O2 O2 Flow FiO2 Mean Ox Delivery Rate 02/035 97.5 79 19 146/77 100.2 99 02/03 0010 97.3 88 19 136/81 99.3 97 02/03 2008 97.2 89 19 152/84 107.0 99 02/02 1745 99.1 91 18 160/88 111.9 98 Room air PATIENT WEIGHT: Weight (lb): 266Weight (oz): 12.15Weight (kg): 121.000 Medications:Active Meds + DC'd Last 24 HrsLosartan Potassium (COZAAR) 100 MG DAILY PO Verapamil HCl (CALAN SR) 360 MG DAILY PO Hydrocodone Bitart/Acetaminophen (NORCO 5/325 TABLET (C-II)) 1 TAB Q4H PRN PRN PO Enoxaparin Sodium (LOVENOX) 60 MG Q12HR SUBQ Carvedilol (COREG) 12.5 MG BID PO Dexamethasone Sodium Phosphate (DECADRON 4MG IJ) 4 MG .STK-MED ONE Z (DC) Labetalol HCl (TRANDATE, NORMODYNE) 20 MG .STK-MED ONE Z (DC) Lidocaine HCl (XYLOCAINE 1%) 5 ML .STK-MED ONE Z (DC) Ondansetron HCl (ZOFRAN) 4 MG .STK-MED ONE Z (DC) Phenylephrine HCl (CARTER-SYNEPHRINE 1PC IJ.) 10 MG .STK-MED ONE Z (DC) Succinylcholine Chloride (Quelicin) 20 MG .STK-MED ONE Z (DC) Glipizide (GLUCOTROL TAB) 10 MG BID AC PO Nateglinide (STARLIX) 120 MG TID AC PO (PEND) Pantoprazole (PROTONIX) 40 MG DAILY PO Acetaminophen (TYLENOL) 650 MG Q4H PRN PRN PO Sodium Chloride (SODIUM CHLORIDE 0.9%) 1,000 ML ONCE ONE IV (DC) Magnesium Sulfate (MAG SULFATE 2GM PREMIX) 50 ML .STK-MED ONE IV (DC) Lidocaine HCl (XYLOCAINE 2%) 0 .STK-MED ONE .ROUTE (DC) Cefazolin Sodium (ANCEF) 0 .STK-MED ONE .ROUTE (DC) Ephedrine Sulfate (ePHEDrine sulfate) 0 .STK-MED ONE .ROUTE (DC) Propofol (DIPRIVAN) 0 .STK-MED ONE .ROUTE (DC) Heparin Sodium (HEPARIN SODIUM) 0 .STK-MED ONE .ROUTE (DC) Heparin Sodium/Dextrose (HEPARIN 25,000UNITS/D5W 500ML) 500 ML .STK-MED ONE IV (DC) Heparin Sodium/Sodium Chloride (HEPARIN 1000 UNITS/NS 500ML) 1,000 ML .STK-MED ONE IV (DC) Iopamidol (ISOVUE-300) 0 .STK-MED ONE .ROUTE (DC) Lidocaine (XYLOCAINE 1%) 0 .STK-MED ONE .ROUTE (DC) Fentanyl Citrate (SUBLIMAZE (C-II)) 0 .STK-MED ONE .ROUTE (DC) Propofol (DIPRIVAN) 0 .STK-MED ONE .ROUTE (DC) Sodium Chloride (SODIUM CHLORIDE 0.9%) 100 ML .STK-MED ONE IV (DC) Sodium Chloride (SODIUM CHLORIDE 0.9%) 1,000 ML Q13H IV Physical ExamGeneral appearance: alert, awake, orientedHead/Eyes: atraumatic, normocephalicENT: moist mucosal membranesNeck: no JVDCardiovascular: CV assessment: regular rate and rhythmRespiratory: clear to auscultation, no distressLower extremity: LE assessment: no edemaMusculoskeletal: full range of motionNeuro/[employer]: alert, oriented X 3, CN II-XII intactSkin: dry, intactWound/incision: Location:Bilateral groin Site condition: dressing clean dryPsychiatry: normal affect, normal judgment/insight, normal mood ResultsFindings/Data:Laboratory Tests 02/03 Chemistry Sodium (137 - 145 MMOL/L) 136 L Potassium (3.5 - 5.1 MMOL/L) 4.3 Chloride (98 - 107 MMOL/L) 108 H Carbon Dioxide (22 - 30 MMOL/L) 23 Anion Gap (14 - 24 MMOL/L) 9 L BUN (9 - 20 MG/DL) 15 Creatinine (0.66 - 1.25 MG/DL) 1.00 Glomerular Filtr Rate > 60 Glucose (74 - 106 MG/DL) 288 H POC Glucose (60 - 99 MG/DL) 219 H 254 H Calcium (8.4 - 10.2 MG/DL) 8.4 Laboratory Tests 02/02 02/02 02/02 1134 1106 1043 Coagulation Activated Coag Time (74 - 137 SEC) 350 H 350 H 362 H Laboratory Tests 02/03 441 Hematology WBC (3.8 - 9.8 K/MM3) 9.8 RBC (3.95 - 5.67 M/MM3) 4.56 Hgb (12.4 - 16.7 G/DL) 10.9 L Hct (35.9 - 49.5 %) 35.7 L MCV (81.7 - 96.1 fL) 78 L MCH (27.6 - 33.2 pg) 23.9 L MCHC (32.9 - 35.5 %) 30.5 L RDW (12.1 - 15.2 %) 14.2 Plt Count (129 - 368 K/MM3) 224 MPV (7.4 - 10.4 fl) 11.2 H Neut % (Auto) (43 - 75 %) 72.2 Lymph % (Auto) (14 - 44 %) 16.9 [place] % (Auto) (4 - 13 %) 10.1 Eos % (Auto) (0 - 6 %) 0.1 Baso % (Auto) (0 - 2 %) 0.3 Neut # (Auto) (2.0 - 7.6 K/mm3) 7.04 Lymph # (Auto) (1.0 - 3.8 K/mm3) 1.65 [place] # (Auto) (0.1 - 0.8 K/mm3) 0.98 H Eos # (Auto) (0.0 - 0.2 K/mm3) 0.01 Baso # (Auto) (0.0 - 0.2 K/mm3) 0.03 Immature Gran % (0.0 - 2.0 %) 0.4 Nucleated RBC % (0 - 1.0 %) 0.0 Nucleated RBCs # (Man) (0.0 - 0.1 K/mm3) 0.00 Diagnosis, Assessment Plan Free Text DxA P NotesFree Text DxA P Notes:IMP: PAFIB - s/p PVI h/o AFL - s/p CT isthmus ablation PLAN: d/c home f/u one week. at 0620 [facility] #:[id number] OF REPORTPRProgress [id number] able for patient oxfcAFJXGCCMVMENLD6951-70-71J00:21:06 [facility] 2021-02-[facility] 14:52:00 [id number] 0HiDNBbytFUZJjVkfoLYw3K7QdEea sGJjuigCZKaH9scr4npGe1ExahG6994-25-36J69:52:56038 2-[address] [address] PATIENT NAME: DERIAN KASPER ADMIT DATE: 02/02/21ACCOUNT NO: [id number] ROOM NO: .[facility] AGE: 70 REPORT TYPE: CARDIAC CATHETERIZATION REPORT SEX: M ADMITTING PHYSICIAN:Titus Hernandez MD ATTENDING PHYSICIAN:Titus Hernandez MD PROCEDURE DATE: 02/02/2021 PROCEDURES:1. Comprehensive electrophysiology study with pulmonary vein isolation/atrialfibrillation ablation.2. Additional atrial ablation.3. Three-dimensional interatrial mapping.4. Intracardiac echocardiography. PREPROCEDURE DIAGNOSES:1. Paroxysmal atrial fibrillation.2. History of typical atrial flutter, status post ablation. POSTPROCEDURE DIAGNOSES:1. Paroxysmal atrial fibrillation.2. History of typical atrial flutter, status post ablation.3. Cavotricuspid isthmus gap. AUTO FORMER MACHINE OPERATOR: Titus Hernandez M.D. ANESTHESIA: General endotracheal anesthesia. PICTURE HANGER: None. PROCEDURE DETAILS: After informed consent was obtained explaining to thepatient the risks, benefits, and alternatives, the patient was brought to thecardiac catheterization lab in the fasting postabsorptive state. He was preppedand draped in sterile fashion. Local anesthesia was applied over the left andright femoral veins with 1% lidocaine. Access to the veins was obtained usingmodified Seldinger technique with a micropuncture kit and ultrasound guidance. A 7-Indonesian sheath was advanced over the wire in the right femoral vein. A 6,locking 8, 9-Indonesian sheaths were placed over the wire into the left femoralvein. Sheaths were aspirated and flushed and connected to heparinized salineinfusion. An intracardiac echocardiography catheter was advanced via the9-Indonesian sheath and placed in the right atrium. Intracardiac echocardiographywas performed to visualize the left atrium, pulmonary veins, and interatrialseptum. A 5-Indonesian Cournand catheter was advanced via the 6-Indonesian sheath andplaced in the right ventricle. A decapolar deflectable catheter was advancedvia the locking 8-Indonesian sheath and placed in the coronary sinus. A VersaCrosswire was advanced via the 7-Indonesian sheath and placed in the high right atrium. The 7-Indonesian sheath was exchanged for the VersaCross sheath, which was advancedinto the right atrium. It was withdrawn into the posterior septal region. The PATIENT NAME: DERIAN KASPER VersaCross wire was utilized with RF energy to perform a transseptal puncture. The VersaCross sheath was advanced over the wire into the left atrium. TheVersaCross wire was then held in the left atrium and the VersaCross sheath wasexchanged for the Medtronic sheath after dilatation of the femoral access sitewith a 12-Indonesian sheath. Prior to placement of the 7-Indonesian sheath, twoPerclose devices were placed in a preclose fashion. The Medtronic cryo sheathwas then advanced into the left atrium over the VersaCross wire. The VersaCrossand dilator were removed. The sheath was aspirated and flushed and connected toheparinized saline infusion. After intravenous heparin was administered, aPentaRay catheter was advanced via the Medtronic sheath into the left atrium. Athree-dimensional interatrial map was then created. Following the creation ofthe map the cryoballoon was then prepped and the PentaRay catheter was exchangedfor the cryoballoon, which was advanced over the wire into the left atrium. Sequential isolation of the 4 pulmonary veins was then performed. Esophagealtemperature monitoring was utilized throughout. Phrenic nerve pacing wasutilized while isolating the right pulmonary veins. Following cryo application,the PentaRay catheter was then exchanged for the cryoballoon. Athree-dimensional map verified all 4 veins were isolated. The sheath andPentaRay catheter were then withdrawn into the right atrium. Athree-dimensional map was then created of the cavotricuspid isthmus with thevoltage map, this indicated a gap in the prior ablation line. Pacing confirmedgaps in the ablation line. A ThermoCool STSF catheter was then prepped andadvanced via the sheath after the PentaRay catheter was removed. Multiple RFapplications were made across the cavotricuspid isthmus. Intracardiacechocardiography revealed multiple pouches along the cavotricuspid isthmus line. The Medtronic sheath was then exchanged for a short 16-Indonesian sheath. A rampsheath was then advanced into the right atrium through the 16-Indonesian sheath. Additional RF applications were made across the cavotricuspid isthmus line. This resulted in isthmus block. Isthmus block was verified with differentialpacing. At the end of the procedure, all catheters were removed. The sheathswere aspirated and flushed. The left femoral venous sheaths were removed andhemostasis achieved with a hmxhpg-bn-ryitp suture with 0 Ethibond suture. Theramp sheath and then the 16-Indonesian sheath were removed. Hemostasis was achievedwith the two Perclose devices that were previously deployed. The patienttolerated the procedure well with no complications. DATA:LEFT SUPERIOR PULMONARY VEIN:FREEZE #1: -27 degrees at 30 seconds. Time to isolation -42 degrees at 88seconds, temperature mohan -46 degrees, duration 180 seconds, esophagealtemperature mohan 35.2.FREEZE #2: -30 degrees C at 30 seconds, temperature mohan -44 degrees C, freezeduration 180 seconds, esophageal temperature mohan 34 degrees C. LEFT INFERIOR PULMONARY VEIN:FREEZE #1: -27 degrees, temperature mohan -34 degrees, duration 75 seconds,esophageal temperature mohan 34.8.FREEZE #2: -29 degrees at 30 seconds, temperature mohan -42 degrees, freezeduration 180 seconds, esophageal temperature mohan of 33.1 degrees C.FREEZE #3: -29 degrees C, temperature mohan -40 degrees, freeze duration 180seconds. RIGHT INFERIOR PULMONARY VEIN:FREEZE #1: -27 degrees at 30 seconds, -40 degrees temperature mohan, freeze PATIENT NAME: DERIAN KASPER duration 180 seconds, esophageal temperature mohan 35.4 degrees C.FREEZE #2: Temperature at 30 seconds -34 degrees C, temperature mohan -51degrees C, duration 180 seconds, esophageal temperature mohan 35.6 degrees C. 10 seconds to 0 degrees centigrade. RIGHT SUPERIOR PULMONARY VEIN:FREEZE #1: -30 degrees C at 30 seconds, temperature mohan -48 degrees C, freezeduration 180 seconds, esophageal temperature mohan 35.4 degrees C.FREEZE #2: -31 degrees C, temperature mohan -49 degrees C, duration 180seconds, esophageal temperature mohan 35.4 degrees C. CONCLUSIONS:1. Successful pulmonary vein isolation.2. Successful cavotricuspid isthmus ablation. ESTIMATED BLOOD LOSS: 20 mL. COMPLICATIONS: None. Dictated By: Titus Hernandez MD WT: CATH:Z.CPS/PEPGR/NTSDD: 02/02/2021 14:52:47DT: 02/02/2021 15:51:22Conf#: [id number]/DID#: [id number] cc: Tara Mantilla MD Authenticated by Titus Hernandez MD On 02/03/2021 07:38:44 AM at 0738 PATIENT NAME: DERIAN KASPER Okhs2466-49-15T96:51:00Z.[id number] ble for patient acxhOCACDBYLSNIEVI7061-63-71D95:39:05 [facility] 2021-02-02 06:41:00 [id number]+ PNic7QFPSCiWH9aLCrKb/rsvwQwPn zGNnC1zqF7S8ROX+UwFziUColeE8591-59-30G93:41:[address] 2-[address] [place] [address] PATIENT NAME: DERIAN KASPER ADMIT DATE: 02/02/21ACCOUNT NO: [id number] ROOM NO: AGE: 70 REPORT TYPE: ELECTROCARDIOGRAM SEX: M ADMITTING PHYSICIAN: ATTENDING PHYSICIAN:Titus Hernandez MD Order:[id number] Reason : ARRHYTHMIA Test Date/Time Stamp:TueFeb 02 2021 06:41:58Blood Pressure : / mmHGVent. Rate : 064 BPM Atrial Rate : 064 BPM P-R Int : 180 ms QRS Dur : 092 ms QT Int : 410 ms P-R-T Axes : 060 -41 007 degrees QTc Int : 422 ms Normal sinus rhythmLeft axis deviationAbnormal ECGWhen compared with ECG of 26-SEP-2018 07:10,premature ventricular complexes are no longer presentQRS axis shifted leftCriteria for Septal infarct are no longer presentConfirmed by TARA MANTILLA ([id number]) on 02/02/2021 7:18:09 AM Referred By: Titus Hernandez Confirmed by:TARA MANTILLA at 0718 PATIENT NAME: DERIAN KASPER .[id number] AVAvailable for patient ggjpJUXUOGQWCRDBLZ4437-05-84J49:18:38 [facility] 2018-09-27 07:32:00 [id number] wL13FBOQd62XsMjulCrMgBZ+sV6BL RnV/2gS2FNA5N3Mw9CZa1v4lqSW5oF8qv56359-78-77T34:3 2:099992-[address] [address] PATIENT NAME: DERIAN KASPER ADMIT DATE: 09/26/18ACCOUNT NO: [id number] ROOM NO: [facility] AGE: 68 REPORT TYPE: CARDIAC CATHETERIZATION REPORT SEX: M ADMITTING PHYSICIAN:Titus Hernandez MD ATTENDING PHYSICIAN:Titus Hernandez MD PROCEDURE DATE: 09/26/2018 PREPROCEDURE DIAGNOSIS: Atrial flutter. POSTPROCEDURE DIAGNOSIS: Typical isthmus-dependent atrial flutter. ANESTHESIA: Local anesthesia was sedation. PICTURE HANGER: None. AUTO FORMER MACHINE OPERATOR: Titus Hernandez MD PROCEDURE DETAILS: After informed consent was obtained explaining to thepatient risks, benefits, and alternatives, the patient brought to the cardiaccatheterization lab in the fasting postabsorptive state. He was prepped anddraped in sterile fashion. Local anesthesia was applied over both femoral veinswith 1% lidocaine. Access to both femoral veins was obtained using modifiedSeldinger technique with a micropuncture kit and ultrasound guidance. Twostandard 8s and one locking 8-Indonesian sheath was placed in the right femoralvein. Two 6-Indonesian sheaths and one 7-Indonesian sheath were placed in the leftfemoral vein. All sheaths were aspirated and flushed and connected toheparinized saline infusion. A 5-Indonesian Cournand catheter was advanced via a6-Indonesian sheath and placed in the right ventricular apex. A 6-Indonesian Cournandcatheter was advanced via the 7-Indonesian sheath and placed in the HIS position. A5-Fench Rebecca catheter was advanced via the remaining 6-Indonesian sheath andplaced in the high right atrium. A duodecapolar isthmus catheter was advancedvia an 8-Indonesian sheath and placed in the right atrium around the cristaterminalis and across the cavotricuspid isthmus. A decapolar catheter wasadvanced via the locking 8-Indonesian sheath and placed in the coronary sinus. Program stimulation was performed. Isuprel was administered up to 7 mcg perminute. INTERVENTION: Three-dimensional interatrial mapping of the cavotricuspidisthmus area was made. Multiple RF applications were created from the distal tothe proximal portion of the cavotricuspid isthmus. RF lesion tracking was madevia the Three-dimensional mapping. Bidirectional cavotricuspid isthmus blockwas verified by differential pacing. At the end of the procedure, all catheterswere removed. The sheaths were aspirated and flushed. The sheaths were removedand hemostasis achieved with local pressure. The patient tolerated theprocedure well with no complications. PATIENT NAME: DERIAN KASPER CONCLUSIONS:1. Baseline rhythm, normal sinus.2. Successful empiric cavotricuspid isthmus ablation.3. Unable to induce atrial arrhythmia with multiple extra stimuli in the atriumfrom the proximal coronary sinus and high right atrium.4. Estimated blood loss 10 mL.5. No complications. Dictated By: Titus Hernandez MD WT: CATH:CARLINE/ENZO/NTSDD: 09/27/2018 07:32:38DT: 09/27/2018 07:49:38Conf#: [id number]/DID#: [id number] cc: Tara Mantilla MD Authenticated by Titus Hernandez MD On 09/29/2018 12:12:47 AM at 0013 PATIENT NAME: DERIAN KASPER Xkyt3833-93-89A79:49:00Z.[id number] ble for patient kxtvAEYIIDIWWLBAGN4483-43-14Y94:13:14 [facility] 2018-09-27 07:26:00 [id number] ASLmowH1bxbZhCs8giemA0udd2/FS zathAbHP/mWRNGyQJgzdJmpj/TOzBdKawI6707-10-65L56:2 6:00 [facility] ([facility])Cardiology Progress NoteREPORT#:[id number] REPORT STATUS: SignedDATE:09/27/18 TIME: 725 PATIENT: DERIAN KASPER UNIT #: [id number]#: [id number] [facility]GE: 68 SEX: M ATTEND: Titus Hernandez [facility] AUTHOR: Titus Hernandez MD * ALL edits or amendments must be made on the electronic/computer document * SubjectivePatient reports:No: chest pain, palpitations, shortness of breath. Objective GeneralVS/I O:24 hour I O ending at 0700: 09/27 0709/26 1900 Intake Total 420 240 Output Total Balance 420 240 Intake, Oral 420 240 Number Voids 2 1 Vital Signs: Date Time Temp Pulse Resp B/P B/P Pulse O2 O2 Flow FiO2 Mean Ox Delivery Rate 09/27 0600 98.4 82 18 145/87 106.7 94 Room air 09/27 0026 98.4 80 18 135/88 103 96 Room air 09/26 2031 98.4 80 18 145/82 102.8 95 Room air 09/26 1747 99.0 80 18 167/88 114.4 98 Room air Patient Weight Weight (lb): Weight (oz): Weight (kg): Medications:Active Meds + DC'd Last 24 HrsGlipizide 10 MG DAILY PO Losartan Potassium 50 MG DAILY PO Nebivolol 5 MG DAILY PO Patient Own Medication 1 EA TID AC PO Atorvastatin Calcium 20 MG BEDTIME PO Metformin HCl 1,000 MG BID PO Insulin Human Lispro LOW DOSE SLIDING SCALE AC HS SUBQ Dextrose/Water 12.5 GM ASDIR PRN IV Dextrose/Water 25 GM ASDIR PRN IV Sodium Chloride 1,000 ML ONCE ONE IV (DC) Cyclobenzaprine HCl 10 MG QID PRN PRN PO Naproxen 500 MG Q12H PRN PRN PO Etomidate 0 .STK-MED ONE .ROUTE (DC) Flumazenil 0 .STK-MED ONE .ROUTE (DC) Naloxone HCl 0 .STK-MED ONE .ROUTE (DC) Midazolam HCl 0 .STK-MED ONE .ROUTE (DC) Fentanyl Citrate 0 .STK-MED ONE .ROUTE (DC) Midazolam HCl 0 .STK-MED ONE .ROUTE (DC) Midazolam HCl 0 .STK-MED ONE .ROUTE (DC) Lidocaine 0 .STK-MED ONE .ROUTE (DC) Sodium Chloride 1,000 ML Q13H IV (DC) Physical ExamGeneral appearance: alert, awake, orientedHead/Eyes: atraumatic, normocephalicENT: moist mucosal membranesNeck: no JVDCardiovascular: CV assessment: regular rate and rhythmRespiratory: clear to auscultation, no distressLower extremity: LE assessment: no edemaMusculoskeletal: full range of motionNeuro/[employer]ING: alert, oriented X 3, CN II-XII intactSkin: dry, intactWound/incision: Site condition: dressing clean dryPsychiatry: normal affect, normal judgment/insight, normal mood ResultsFindings/Data:Laboratory Tests 09/27 09/26 09/26 0559 2030 1541 Chemistry POC Glucose (60 - 99 MG/DL) 173 H 128 H 254 H Laboratory Tests 09/27 0630 Hematology WBC (3.8 - 9.8 K/MM3) 6.9 RBC (3.95 - 5.67 M/MM3) 4.85 Hgb (12.4 - 16.7 G/DL) 11.9 L Hct (35.9 - 49.5 %) 37.9 MCV (81.7 - 96.1 fL) 78 L MCH (27.6 - 33.2 pg) 24.5 L MCHC (32.9 - 35.5 %) 31.4 L RDW (12.1 - 15.2 %) 14.9 Plt Count (129 - 368 K/MM3) 218 MPV (7.4 - 10.4 fl) 10.7 H Neut % (Auto) (43 - 75 %) 53.5 Lymph % (Auto) (14 - 44 %) 24.9 [place] % (Auto) (4 - 13 %) 12.5 Eos % (Auto) (0 - 6 %) 8.4 H Baso % (Auto) (0 - 2 %) 0.6 Neut # (Auto) (2.0 - 7.6 K/mm3) 3.69 Lymph # (Auto) (1.0 - 3.8 K/mm3) 1.72 [place] # (Auto) (0.1 - 0.8 K/mm3) 0.86 H Eos # (Auto) (0.0 - 0.2 K/mm3) 0.58 H Baso # (Auto) (0.0 - 0.2 K/mm3) 0.04 Immature Gran % (0.0 - 2.0 %) 0.1 Nucleated RBC % (0 - 1.0 %) 0.0 Nucleated RBCs # (Man) (0.0 - 0.1 K/mm3) 0.00 Diagnosis, Assessment Plan Free Text DxA P NotesFree Text DxA P Notes:IMP: Aflutter s/p RFA PLAN: d/c home f/u one week. at 1754 RPT #:[id number] OF REPORTPRProgress Hucy5518-94-74O16:26:00Z.[id number] able for patient ermxVZEUEADBHIRBNC2221-51-27A09:54:57 [facility] 2018-09-26 07:10:00 [id number] ZODpaY7ySDv/M6gcyzC/etS49aMgC 7AqCP8uWe0CoWuO9fTfF27bI1oPf6jQepz6726-14-39U64:1 0:[id number] [place] [address] PATIENT NAME: DERIAN KASPER ADMIT DATE: 09/26/18ACCOUNT NO: [id number] ROOM NO: Z.440 AGE: 68 REPORT TYPE: ELECTROCARDIOGRAM SEX: M ADMITTING PHYSICIAN:Titus Hernandez MD ATTENDING PHYSICIAN:Titus Hernandez MD Order:[id number] Reason : CAD Test Date/Time Stamp:TueSep 26 2018 07:10:38Blood Pressure : / mmHGVent. Rate : 072 BPM Atrial Rate : 072 BPM P-R Int : 168 ms QRS Dur : 098 ms QT Int : 398 ms P-R-T Axes : 045 035 035 degrees QTc Int : 435 ms Sinus rhythm with occasional premature ventricular complexesSeptal infarct , age undeterminedAbnormal ECGNo previous ECGs availableConfirmed by MD MARY KAY, WILLIS HOLLINS ([id number]) on 09/27/2018 10:20:57 AM Referred By: Titus Hernandez Confirmed by:WILLIS PARRA MD at 1021 PATIENT NAME: DERIAN KASPER .[id number] AVAvailable for patient dccyPCQHBEXFZVXYCY7489-00-12B78:21:23 [facility]
[2023-09-06] MEDS ORDERED: NA CHLORIDE 0.9% 1,000 ML ONE (16:19)
--- NOTE | 2023-09-06 16:48 | RAD REPORT ---
EXAM DESCRIPTION: USExtrem Venous W Compress Bil09/06/2023 4:21 pm CLINICAL HISTORY: Leg pain COMPARISON: 2018 FINDINGS: The common femoral, superficial femoral, greater saphenous, popliteal and posterior tibial veins bilaterally are compressible and demonstrate augmentation. Doppler demonstrates good flow. Grayscale, color and spectral analysis performed on all vessels IMPRESSION: No evidence of deep venous thrombosis involving either lower extremity.
[2023-09-06 16:59] LABS: Absolute Basophils 0.2 K/uL (0-0.5); Absolute Lymphocytes (CBC) 1.2 K/uL (0.7-4.9); Absolute Monocytes 2.7 K/uL (0.1-1.3); Absolute Neutrophil 19.2 K/uL (1.8-8.0); Basophils % 0.7 % (0-1.3); Hematocrit 35.5 % (39.6-49.0); Hemoglobin 11.2 g/dL (13.6-17.9); Lymphocytes % 5.3 % (15.3-44.8); MCH 24.3 pg (27.0-35.0); MCHC 31.6 g/dL (32.0-36.0); MCV 76.8 fL (80-100); MPV 8.8 fL (7.6-11.3); Monocytes % 11.6 % (3.3-12.3); Neutrophils % 82.4 % (41.7-73.7); Platelets 295 thou/uL (152-406); RBC Red Blood Cell Count 4.63 M/uL (4.33-5.43); Red Cell Distribution Width 15.9 % (12.1-15.2)
[2023-09-06 17:03] LABS: PT Prothrombin Time 20.2 SECONDS (9.4-12.5); Protime INR 1.87
[2023-09-06 17:06] LABS: Sqamous Epithelial <5 /HPF (None Seen); Urine Bacteria None Seen /HPF (<20); Urine Bilirubin NEGATIVE (Negative); Urine Blood 1+ (Negative); Urine Clarity Turbid (Clear); Urine Color Yellow (Yellow); Urine Culture Reflex Order NOT NEEDED; Urine Glucose 4+ (Over) (Negative); Urine Ketones 1+ (Negative); Urine Microscopic Reflex YN ORDER UMIC; Urine Nitrite NEGATIVE (Negative); Urine Protein 1+ (Negative); Urine RBC 21-50 /HPF (None Seen); Urine Urobilinogen Normal (Normal); Urine pH 5.5 (5.0-7.0)
[2023-09-06 17:19] LABS: ALT/SGPT 19 U/L (16-61); Albumin 2.6 g/dL (3.4-5.0); Albumin/Globulin Ratio 0.5 (1.1-1.8); Alkaline Phosphatase 100 U/L (45-117); Anion Gap 12.3 mEq/L (5.0-15.0); BUN Blood Urea Nitrogen 18 mg/dL (7-18); Bicarbonate 23 mEq/L (21-32); Bilirubin Direct 0.2 mg/dL (0-0.2); Bilirubin Indirect, Calculated 0.4 mg/dL (0.2-0.8); Bilirubin Total 0.6 mg/dL (0.2-1.0); Globulin 5.6 g/dL (2.3-3.5); Glomerular Filtration Rate 53 ml/min (=/>90); Glucose Level 316 mg/dL (74-106); Lipase 17 U/L (13-75); NT PRO-BNP 214 pg/mL (<125); Potassium 4.3 mEq/L (3.5-5.1); Protein, Total 8.2 g/dL (6.4-8.2); Sodium Level 129 mEq/L (136-145)
--- NOTE | 2023-09-06 17:19 | RAD REPORT ---
EXAM DESCRIPTION: US - Scrotum Testicles - 09/06/2023 4:30 pm CLINICAL HISTORY: Testicular pain COMPARISON: None FINDINGS: Right testicle measures 3 9 x 3.3 x 3.6 centimeters. Echotexture is homogeneous. Mildly in creased flow right testicle Left testicle measures 4.4 x 2.8 x 3.4 centimeters. Echotexture is homogeneous. Normal blood flow Right epididymis is enlarged with moderate increased blood flow. The left epididymis demonstrates nor mal blood flow. Large complex right hydrocele IMPRESSION: Right epididymitis. Mild right orchitis Large complex right hydrocele
[2023-09-06 17:24] LABS: AST/SGOT < 10 U/L (15-37); Troponin High Sensitivity < 3.0 pg/mL (<58.9)
--- NOTE | 2023-09-06 17:29 | RAD REPORT ---
EXAM DESCRIPTION: Ange Single View09/06/2023 4:42 pm CLINICAL HISTORY: sob COMPARISON: 2021 FINDINGS: The lungs appear clear of acute infiltrate. The heart is normal size IMPRESSION: No acute abnormalities displayed
[2023-09-06] MEDS ORDERED: Meropenem 1000 MG/VIAL IV ONE (17:50)
[2023-09-06] MEDS ORDERED: ONDANSETRON 4 MG/2 ML VIAL ONE (17:50)
[2023-09-06] MEDS ORDERED: Levofloxacin500mg IV 500 MG/100 ML BAG IV ONE (17:51)
[2023-09-06] MEDS ORDERED: NA CHLORIDE 0.9% 100 ML ONE (17:51)
[2023-09-06] MEDS ORDERED: MORPHINE 4 MG/ML SYR ONE (17:51)
--- NOTE | 2023-09-06 18:06 | EDPHYS ---
Physician Documentation [facility] Name: Emanuel Marin Age: 73 yrs Sex: Male : 1950 Arrival Date: 09/06/2023 Time: 15:41 Bed 20 Private MD: ED Physician Nico Mar HPI: 09/05 17:56 This 73 yrs old Black Male presents to ER via Ambulatory with complaints of Testicular ari Swelling. 17:56 The patient presents with scrotal pain, swelling, tenderness, urinary symptoms, ari dysuria. Onset: The symptoms/episode began/occurred 5 day(s) ago. Modifying factors: The symptoms are alleviated by remaining still, the symptoms are aggravated by movement, pressure. Associated signs and symptoms: Pertinent positives: abdominal pain, dysuria. Severity of symptoms: At their worst the symptoms were moderate, in the emergency department the symptoms are unchanged. The patient has not experienced similar symptoms in the past. Historical: - Allergies: 15:55 No Known Allergies; mb9 - PMHx: 15:55 Diabetes mellitus; Hypertensive disorder; Atrial fibrillation; mb9 - PSHx: 15:55 cardiac ablation; hernia; mb9 - Immunization history:: Adult Immunizations up to date. - Infectious Disease History:: Denies. - Social history:: Smoking status: Patient denies any tobacco usage or history of. ROS: 17:57 Constitutional: Negative for fever, chills, and weight loss, Eyes: Negative for injury, ari pain, redness, and discharge, ENT: Negative for injury, pain, and discharge, Neck: Negative for injury, pain, and swelling, Cardiovascular: Negative for chest pain, palpitations, and edema, Respiratory: Negative for shortness of breath, cough, wheezing, and pleuritic chest pain, Abdomen/GI: Negative for abdominal pain, nausea, vomiting, diarrhea, and constipation, Back: Negative for injury and pain, MS/Extremity: Negative for injury and deformity, Skin: Negative for injury, rash, and discoloration, Neuro: Negative for headache, weakness, numbness, tingling, and seizure, Psych: Negative for depression, anxiety, suicide ideation, homicidal ideation, and hallucinations, Allergy/Immunology: Negative for hives, rash, and allergies, Endocrine: Negative for neck swelling, polydipsia, polyuria, polyphagia, and marked weight changes, Hematologic/Lymphatic: Negative for swollen nodes, abnormal bleeding, and unusual bruising, 17:57 : Positive for urinary symptoms, burning with urination, testicular pain of the right testicle, Exam: 17:57 Constitutional: This is a well developed, well nourished patient who is awake, alert, ari and in no acute distress. Head/Face: Normocephalic, atraumatic. Eyes: Pupils equal round and reactive to light, extra-ocular motions intact. Lids and lashes normal. Conjunctiva and sclera are non-icteric and not injected. Cornea within normal limits. Periorbital areas with no swelling, redness, or edema. ENT: Nares patent. No nasal discharge, no septal abnormalities noted. Tympanic membranes are normal and external auditory canals are clear. Oropharynx with no redness, swelling, or masses, exudates, or evidence of obstruction, uvula midline. Mucous membranes moist. Neck: Trachea midline, no thyromegaly or masses palpated, and no cervical lymphadenopathy. Supple, full range of motion without nuchal rigidity, or vertebral point tenderness. No Meningismus. Chest/axilla: Normal chest wall appearance and motion. Nontender with no deformity. No lesions are appreciated. Cardiovascular: Regular rate and rhythm with a normal S1 and S2. No gallops, murmurs, or rubs. Normal PMI, no JVD. No pulse deficits. Respiratory: Lungs have equal breath sounds bilaterally, clear to auscultation and percussion. No rales, rhonchi or wheezes noted. No increased work of breathing, no retractions or nasal flaring. Abdomen/GI: Soft, non-tender, with normal bowel sounds. No distension or tympany. No guarding or rebound. No evidence of tenderness throughout. Back: No spinal tenderness. No costovertebral tenderness. Full range of motion. Skin: Warm, dry with normal turgor. Normal color with no rashes, no lesions, and no evidence of cellulitis. MS/ Extremity: Pulses equal, no cyanosis. Neurovascular intact. Full, normal range of motion. Neuro: Awake and alert, GCS 15, oriented to person, place, time, and situation. Cranial nerves II-XII grossly intact. Motor strength 5/5 in all extremities. Sensory grossly intact. Cerebellar exam normal. Normal gait. Psych: Awake, alert, with orientation to person, place and time. Behavior, mood, and affect are within normal limits. 17:57 : CVA tenderness, is absent, Male external genitalia: swelling, scrotal, is noted in the right inguinal area, of the epididymis area, tenderness, of the right testicle is noted, is palpated in the right inguinal area, of the epididymis area, that is moderate, 18:52 ECG was reviewed by the Attending Physician. [facility] Vital Signs: 15:54 BP 163 / 77; Pulse 90; Resp 18; Temp 97.8(O); Pulse Ox 100% on R/A; Weight 118.84 kg; mb9 Height 6 ft. 4 in. ; 17:15 BP 145 / 73; Pulse 93; Resp 16; Pulse Ox 97% on R/A; me1 18:00 BP 141 / 66; Pulse 93; Resp 16; Pulse Ox 97% on R/A; me1 19:00 BP 120 / 69; Pulse 90; Resp 16; Temp 98.1(O); Pulse Ox 98% on R/A; me1 15:54 Body Mass Index 31.89 (118.84 kg, 193.04 cm) mb9 MDM: 15:56 Patient medically screened. [facility] 18:00 Differential diagnosis: nonspecific abdominal pain, UTI, urinary retention, ari prostatitis, urethritis, bowel obstruction, diverticulitis, gastritis, Prostatitis, Pyelonephritis, Testicular Torsion, Ureterolithiasis, urinary tract infection. Data reviewed: vital signs, nurses notes, lab test result(s), EKG, radiologic studies, doppler, plain films, ultrasound. Consideration of Admission/Observation Patient was admitted/placed on observation. Escalation of care including admission/observation considered. I considered the following discharge prescriptions or medication management in the emergency department Medications were administered in the Emergency Department. See MAR. Independent interpretation of the following test(s) in the Emergency Department EKG: See my EKG interpretation above. Test considered but Not performed: MRI: NO ABD MRI. Historians other than the Patient: Spouse/Significant Other: WELL INFORMED. Care significantly affected by the following chronic conditions: Diabetes, Hypertension, Obesity, A FIB. 09/05 16:00 Order name: Basic Metabolic Panel; Complete Time: 17:25 [facility] 09/05 16:00 Order name: CBC with Diff; Complete Time: 17:25 [facility] 09/05 16:00 Order name: LFT's; Complete Time: 17:25 [facility] 09/05 16:00 Order name: Magnesium; Complete Time: 17:25 [facility] 09/05 16:00 Order name: NT PRO-BNP; Complete Time: 17:25 [facility] 09/05 16:00 Order name: PT-INR; Complete Time: 17:25 [facility] 09/05 16:00 Order name: Troponin HS; Complete Time: 17:25 [facility] 09/05 16:00 Order name: Lipase; Complete Time: 17:25 [facility] 09/05 16:00 Order name: Urinalysis w/ reflexes; Complete Time: 17:25 [facility] 09/05 16:00 Order name: AMMONIA; Complete Time: 17:25 [facility] 09/05 17:27 Order name: Blood Culture Adult (2) [facility] 09/05 17:27 Order name: Lactate w/ 2H reflex if indic.; Complete Time: 19:08 [facility] 09/05 18:38 Order name: Urinalysis w/ reflexes [facility] 09/05 19:37 Order name: Glucose, Ancillary Testing [facility] 09/05 16:00 Order name: XRAY Chest (1 view); Complete Time: 17:54 [facility] 09/05 16:00 Order name: US Extremity Venous W Compression Vance; Complete Time: 17:25 [facility] 09/05 16:00 Order name: US Scrotum Testicles; Complete Time: 17:25 [facility] 09/05 16:00 Order name: EKG; Complete Time: 16:01 [facility] 09/05 16:00 Order name: Cardiac monitoring; Complete Time: 18:39 [facility] 09/05 16:00 Order name: EKG - Nurse/Tech; Complete Time: 18:38 [facility] 09/05 16:00 Order name: IV Saline Lock; Complete Time: 16:54 [facility] 09/05 16:00 Order name: Labs collected and sent; Complete Time: 16:54 [facility] 09/05 16:00 Order name: O2 Per Protocol; Complete Time: 16:54 [facility] 09/05 16:00 Order name: O2 Sat Monitoring; Complete Time: 16:54 [facility] EC:52 Rate is 90 beats/min. Rhythm is regular. QRS Raymond is Normal. WA interval is normal. QRS ari interval is normal. QT interval is normal. No Q waves. T waves are Normal. No ST changes noted. Clinical impression: NSR w/ Non-specific ST/T Changes, Abnormal EKG without significant change, and No evidence of ischemia. Interpreted by me. Reviewed by me. Administered Medications: 17:23 Drug: NS 0.9% IV 1000 ml IV at 125 ml/hr continuous Route: IV; Rate: 125 ml/hr; Site: me1 right antecubital; 18:56 Follow up: IV Status: Infusion continued upon admission me1 17:59 Drug: morphine IVP or IV 4 mg IVP once over 4 mins Route: IVP; Infused Over: 4 mins; me1 Site: right antecubital; 18:58 Follow up: Response: No adverse reaction; Pain is decreased me1 17:59 Drug: Ondansetron IVP 4 mg IVP once; over 2 minutes Route: IVP; Site: right antecubital;me1 18:58 Follow up: Response: No adverse reaction; Nausea is decreased me1 18:00 Drug: Meropenem IV 1 grams IV at per protocol once; (mix in NS 100 mL) Route: IV; Rate: me1 per protocol; Site: right antecubital; 18:30 Follow up: Response: No adverse reaction; IV Status: Completed infusion; IV Intake: me1 100ml 18:39 Drug: levofloxacin IVPB 500 mg 100 ml IVPB once over 60 mins Volume: 100 ml; Route: as6 IVPB; Infused Over: 60 mins; Site: right antecubital; 19:28 CANCELLED (verbal order from Dr Mar to dc orderr): insulin regular human8 units me1 IVP once 19:49 Drug: Insulin Glargine Sub-Q 30 units Sub-Q once {Co-Signature: cp4 Patricia nhSue Figueroa).} Route: Sub-Q; Site: right upper arm; Point of Care Testing: Blood Glucose: 19:24 Blood Glucose: 287 mg/dL; me1 Ranges: Critical Glucose Levels:Adult <50 mg/dl or >400 mg/dl <40 mg/dl or >180 mg/dl Disposition Summary: 09/06/23 18:05 Hospitalization Ordered Notes: Hospitalization Status: Inpatient Admission ari Provider: Danny Wood cha Location: Telemetry/[facility] (Inpatient) ari Condition: Fair ari Problem: new ari Symptoms: have improved ari Bed/Room Type: Standard ari Room Assignment: 410(09/06/23 18:43) bd Diagnosis - Persistent atrial fibrillation ari - detention (current) use of anticoagulants ari - Epididymo-orchitis ari - Epididymitis ari - Elevated white blood cell count ari Forms: - Medication Reconciliation Form ari - SBAR form ari - Leadership Thank You Letter ari Signatures: Dispatcher [employer] EDMS ChristiAni Nico Montes MD MD cha Slawson, Ashby, RN RN as6 Salazar, Leslee Hurd RN RN mb9 Kathryn Loera RN RN me1 Carolina Mendoza cp4 Corrections: (The following items were deleted from the chart) 16:01 16:01 BASIC METABOLIC PANEL+C.LAB.BRZ ordered. EDMS EDMS 16:01 16:01 CBC+H.LAB.BRZ ordered. EDMS EDMS 16:01 16:01 HEPATIC FUNCTION+C.LAB.BRZ ordered. EDMS EDMS 16:01 16:01 MAGNESIUM+C.LAB.BRZ ordered. EDMS EDMS 16:01 16:01 PROBNP+C.LAB.BRZ ordered. EDMS EDMS 16:01 16:01 PROTIME (+INR)+COAG.LAB.BRZ ordered. EDMS EDMS 16:01 16:01 Troponin High Sensitivity+C.LAB.BRZ ordered. EDMS EDMS 16:01 16:01 LIPASE+C.LAB.BRZ ordered. EDMS EDMS 16:01 16:01 Urinalysis+U.LAB.BRZ ordered. EDMS EDMS 16:01 16:01 AMMONIA+C.LAB.BRZ ordered. EDMS EDMS 16:01 16:01 Extrem Venous W Compression Vance+US.RAD.BRZ ordered. EDMS EDMS 16:01 16:01 Scrotum Testicles+US.RAD.BRZ ordered. EDMS EDMS 18:43 18:05 ari bd 19:28 19:09 Insulin Regular Human IVP 8 units IVP once ordered. ari me1
--- NOTE | 2023-09-06 18:06 | ER ---
Nurse's Notes [facility] Name: Emanuel Marin Age: 73 yrs Sex: Male : 1950 Arrival Date: 09/06/2023 Time: 15:41 Bed 20 Private MD: Diagnosis: Persistent atrial fibrillation;intermediate (current) use of anticoagulants;Epididymo-orchitis;Epididymitis;Elevated white blood cell count Presentation: 09/05 15:54 Chief complaint: Patient states: "4 days ago, I started having right testicular pain mb9 and swelling. My urine is brown and burning when I pee.". Coronavirus screen: Vaccine status: Patient reports receiving the 2nd dose of the covid vaccine. Ebola Screen: No symptoms or risks identified at this time. Initial Sepsis Screen: Does the patient meet any 2 criteria? No. Patient's initial sepsis screen is negative. Does the patient have a suspected source of infection? No. Patient's initial sepsis screen is negative. Risk Assessment: Do you want to hurt yourself or someone else? Patient reports no desire to harm self or others. Onset of symptoms was September 06, 2023. 15:54 Acuity: OLIVA 3 mb9 15:54 Method Of Arrival: Ambulatory mb9 Triage Assessment: 15:56 General: Appears in no apparent distress. Behavior is calm, cooperative. Pain: mb9 Complains of pain in pelvis. EENT: No signs and/or symptoms were reported regarding the EENT system. Neuro: Devine Agitation-Sedation Scale (RASS): 0 - Alert and Calm Level of Consciousness is awake, alert, obeys commands, Oriented to person, place, time, situation, Appropriate for age. Cardiovascular: Patient's skin is warm and dry. Respiratory: Airway is patent Respiratory effort is even, unlabored, Respiratory pattern is regular, symmetrical. GI: No signs and/or symptoms were reported involving the gastrointestinal system. : Reports burning with urination. Derm: Skin is pink, warm \\T\\ dry. Historical: - Allergies: 15:55 No Known Allergies; mb9 - PMHx: 15:55 Diabetes mellitus; Hypertensive disorder; Atrial fibrillation; mb9 - PSHx: 15:55 cardiac ablation; hernia; mb9 - Immunization history:: Adult Immunizations up to date. - Infectious Disease History:: Denies. - Social history:: Smoking status: Patient denies any tobacco usage or history of. Screenin:40 [facility] ED Fall Risk Assessment (Adult) History of falling in the last 3 months, me1 including since admission No falls in past 3 months (0 pts) Confusion or Disorientation No (0 pts) Intoxicated or Sedated No (0 pts) Impaired Gait No (0 pts) Mobility Assist Device Used No (0 pt) Altered Elimination No (0 pt) Score/Fall Risk Level 0 - 2 = Low Risk Maintained a safe environment, Provided non-skid footwear, Hourly rounding (assess needs \\T\\ fall precautionary measures) done. Abuse screen: Denies threats or abuse. Nutritional screening: No deficits noted. Tuberculosis screening: No symptoms or risk factors identified. Assessment: 16:40 General: Appears uncomfortable, well groomed, well developed, well nourished, Behavior me1 is calm, cooperative, appropriate for age, Reports "4 days ago, I started having right testicular pain and swelling. My urine is brown and burning when I pee.". Pain: Complains of pain in right testicle and groin and pelvis Pain does not radiate. Pain currently is 8 out of 10 on a pain scale. Quality of pain is described as throbbing, Pain began 2-3 days ago. Is continuous. 16:40 Neuro: Level of Consciousness is awake, alert, obeys commands, Oriented to person, me1 place, time, situation, Appropriate for age. Cardiovascular: Capillary refill < 3 seconds Patient's skin is warm and dry. Respiratory: Airway is patent Respiratory effort is even, unlabored, Respiratory pattern is regular, symmetrical. GI: No signs and/or symptoms were reported involving the gastrointestinal system. : Reports burning with urination, pain scrotum, testicle, with urination. EENT: No signs and/or symptoms were reported regarding the EENT system. Derm: Skin is intact, is healthy with good turgor, Skin is pink, warm \\T\\ dry. Musculoskeletal: No signs and/or symptoms reported regarding the musculoskeletal system. Vital Signs: 15:54 BP 163 / 77; Pulse 90; Resp 18; Temp 97.8(O); Pulse Ox 100% on R/A; Weight 118.84 kg; mb9 Height 6 ft. 4 in. ; 17:15 BP 145 / 73; Pulse 93; Resp 16; Pulse Ox 97% on R/A; me1 18:00 BP 141 / 66; Pulse 93; Resp 16; Pulse Ox 97% on R/A; me1 19:00 BP 120 / 69; Pulse 90; Resp 16; Temp 98.1(O); Pulse Ox 98% on R/A; me1 15:54 Body Mass Index 31.89 (118.84 kg, 193.04 cm) 9 ED Course: 15:44 Patient arrived in ED. mr 15:49 Arm band placed on. mb9 15:55 Triage completed. mb9 15:56 Nico Mra MD is Attending Physician. [facility] 16:18 Kathryn Loera, ARMANDO is Primary Nurse. me1 16:22 US Extremity Venous W Compression Vance In Process Unspecified. EDMS 16:31 US Scrotum Testicles In Process Unspecified. EDMS 16:40 Patient has correct armband on for positive identification. Bed in low position. [place] [facility] [place] reach. Side rails up X2. Provided Education on: POC. Verbalized understanding. . Client placed on continuous cardiac and pulse oximetry monitoring. NIBP monitoring applied. library monitor on. Pulse ox on. NIBP on. 16:40 No provider procedures requiring assistance completed. me1 16:41 Urinalysis w/ reflexes Sent. me1 16:42 Urine collected: clean catch specimen, tea colored. me1 16:42 Initial lab(s) drawn, by ut, sent to lab. Inserted saline lock: 22 gauge in right [facility] antecubital area, using aseptic technique. 16:44 XRAY Chest (1 view) In Process Unspecified. EDMS 16:54 AMMONIA Sent. me1 16:54 Urinalysis w/ reflexes Sent. me1 16:54 Lipase Sent. me1 16:54 Basic Metabolic Panel Sent. me1 16:54 CBC with Diff Sent. me1 16:54 LFT's Sent. me1 16:54 Magnesium Sent. me1 16:54 NT PRO-BNP Sent. me1 16:54 PT-INR Sent. me1 16:54 Troponin HS Sent. me1 17:45 First set of blood cultures drawn by ut. me1 17:48 Blood Culture Adult (2) Sent. ut1 17:48 Lactate w/ 2H reflex if indic. Sent. me1 17:54 Second set of blood cultures drawn by ut. me1 18:02 Danny Wood MD is Hospitalizing Provider. [facility] 19:01 Patient admitted, IV remains in place. me1 19:17 Urinalysis w/ reflexes Sent. me1 Administered Medications: 17:23 Drug: NS 0.9% IV 1000 ml IV at 125 ml/hr continuous Route: IV; Rate: 125 ml/hr; Site: me1 right antecubital; 18:56 Follow up: IV Status: Infusion continued upon admission me1 17:59 Drug: morphine IVP or IV 4 mg IVP once over 4 mins Route: IVP; Infused Over: 4 mins; me1 Site: right antecubital; 18:58 Follow up: Response: No adverse reaction; Pain is decreased me1 17:59 Drug: Ondansetron IVP 4 mg IVP once; over 2 minutes Route: IVP; Site: right antecubital;me1 18:58 Follow up: Response: No adverse reaction; Nausea is decreased me1 18:00 Drug: Meropenem IV 1 grams IV at per protocol once; (mix in NS 100 mL) Route: IV; Rate: me1 per protocol; Site: right antecubital; 18:30 Follow up: Response: No adverse reaction; IV Status: Completed infusion; IV Intake: me1 100ml 18:39 Drug: levofloxacin IVPB 500 mg 100 ml IVPB once over 60 mins Volume: 100 ml; Route: as6 IVPB; Infused Over: 60 mins; Site: right antecubital; 19:28 CANCELLED (verbal order from Dr Mar to dc orderr): insulin regular human8 units me1 IVP once 19:49 Drug: Insulin Glargine Sub-Q 30 units Sub-Q once {Co-Signature: cp4 ([place] [facility] [place]} Route: Sub-Q; Site: right upper arm; Medication: 16:40 VIS not applicable for this client. me1 Point of Care Testing: Blood Glucose: 19:24 Blood Glucose: 287 mg/dL; me1 Ranges: Intake: 18:30 IV: 100ml; Total: 100ml. me1 Outcome: 18:05 Decision to Hospitalize by Provider. [facility] 19:01 Admitted to Tele accompanied by tech, via wheelchair, room 410, with chart, Report me1 called to faxed. receipt confirmed by Julius 19:02 Condition: stable me1 19:02 Instructed on the need for admit, 20:00 Patient left the ED. me1 Signatures: Dispatcher [employer] EDNico Lam MD MD cha Rivera, Mary, Reg Reg mr MackPiter, RN RN as6 Leslee Lincoln, RN RN mb9 Kathryn Loera RN RN me1 Carolina Mendoza cp4 Corrections: (The following items were deleted from the chart) 18:52 15:54 Chief complaint: Patient states: "4 days ago, I started having right testicular me1 pain and swelling. My urine is brown and burning when I pee." mb9
--- NOTE | 2023-09-06 18:32 | P.HP ---
Certification for Inpatient Patient admitted to: Inpatient With expected LOS: >2 Midnights Practitioner: I am a practitioner with admitting privileges, knowledge of patient current condition, hospital course, and medical plan of care. Services: Services provided to patient in accordance with Admission requirements found in Title 42 Section 412.3 of the Code of Federal Regulations Patient History Date of Service: 09/06/23 Reason for admission: Pain in scrotum History of Present Illness: 73 yrs old Male with past medical history of Diabetes ,Hypertension, Atrial Fi brillation s/p Cardiac Ablation presents with complaints of Testicular Swelling. Patient is a poor historian hence most of the history is obtained from the chart review and also talking to the ER physician and family member at the bedside. The patient presents with scrotal pain, swelling, tenderness, urinary symptoms, and dysuria. The symptoms/episode began/occurred 5 day ago. Modifying factors: The symptoms are alleviated by remaining still, the symptoms are aggravated by movement, pressure. Associated signs and symptoms: Pertinent positives: abdominal pain, dysuria. Severity of symptoms: At their worst the symptoms were moderate, in the emergency department the symptoms are unchanged. The patient has not experienced similar symptoms in the past. Patient was assessed in the ER and was admitted for epididymitis Allergies No Known Allergies Allergy (Verified 08/27/22 11:52) Home medications list reviewed: Yes Home Medications: Atorvastatin Calcium [Lipitor] 20 mg PO BEDTIME 02/10/16 Metformin HCl [Glucophage] 1,000 mg PO BID 02/10/16 Nateglinide [Starlix] 120 mg PO TID 02/10/16 Carvedilol [Coreg] 12.5 mg PO BID 07/20/21 Irbesartan 150 mg PO BID 07/20/21 Rivaroxaban [Xarelto] 20 mg PO DAILY 07/20/21 Verapamil HCl [Verelan Pm] 300 mg PO DAILY 07/20/21 glipiZIDE [Glipizide] 10 mg PO BID 07/20/21 Levothyroxine [Synthroid] 0.112 mg PO DAILY 08/23/22 - Past Medical/Surgical History Diabetic: Yes Past Medical History: Reviewed- Non-Contributory -: hypertension -: hypothyroidism -: dyslipidemia -: atrial fibrillation Past Surgical History: Reviewed- Non-Contributory - Family History Family History: Reviewed- Non-Contributory - Social History Smoking Status: Never smoker Alcohol use: Yes CD- Drugs: No Review of Systems 10-point ROS is otherwise unremarkable Physical Examination - Vital Signs Temperature: 96.9 F Blood Pressure: 136/80 Pulse: 86 Respirations: 18 Pulse Ox (%): 93 - Physical Exam General: Alert, In no apparent distress, Oriented x3 HEENT: Atraumatic, Normocephalic Neck: Supple, 2+ carotid pulse no bruit Respiratory: Clear to auscultation bilaterally, Normal air movement Cardiovascular: Regular rate/rhythm, Normal S1 S2 Capillary refill: <2 Seconds Gastrointestinal: Soft and benign, W/out hepatosplenomegaly, Tenderness Musculoskeletal: No clubbing Integumentary: No rashes, No breakdown Neurological: Normal speech, Normal strength at 5/5 x4 extr, Cranial nerves 3-12 intact, Normal reflexes 2+ Lymphatics: No axilla or inguinal lymphadenopathy External genitalia: Edema, Masses, Tenderness - Studies Laboratory Data (last 24 hrs) 09/06/23 09/06/23 09/06/23 16:50 16:50 16:50 WBC 23.30 H Hgb 11.2 L Hct 35.5 L Plt Count 295 PT 20.2 H INR 1.87 Sodium 129 L Potassium 4.3 BUN 18 Creatinine 1.40 H Glucose 316 H Magnesium 2.0 Total Bilirubin 0.6 AST < 10 L ALT 19 Alkaline Phosphatase 100 Lipase 17 Assessment and Plan - Problems (Diagnosis) (1) Acute epididymitis Current Visit: Yes Status: Acute Plan: Acute epididymitis Hydrocele right side Pain control Ultrasound findings noted Started on IV antibiotic Monitor closely on telemetry Urology consult Leukocytosis Monitor CBC in a.m. Started on IV antibiotic Cultures Change antibiotic as per sensitivity Hyponatremia Monitor electrolytes and replace accordingly IV hydration Hypertension Antihypertensives titrated Continue home medications and titrate as needed Hyperlipidemia Continue statin Acute kidney injury Renal parameters monitored Diabetes with hyperglycemia Insulin sliding scale Accu-Chek before every meal and at bedtime GI/DVT prophylaxis Advanced directive full code Discharge Plan: Home Plan to discharge in: 48 Hours - Advance Directives Does patient have a Living Will: Yes Does patient have a Durable POA for Healthcare: Yes Time Spent Managing Pts Care (In Minutes): 48
[2023-09-06] MEDS ORDERED: ACETAMINOPHEN 325 MG TABLET PO PRN (18:33)
[2023-09-06] MEDS: INSULIN GLARGINE 100 UNIT/ML SQ ONE (19:42)
[2023-09-06] MEDS: ENOXAPARIN 40 MG/0.4 ML SQ SCH (21:03)
[2023-09-06] MEDS ORDERED: GLUCAGON 1 MG/VIAL IM PRN (22:29)
[2023-09-06] MEDS ORDERED: D50W 25 GM/50 ML SYRINGE IV PRN (22:29)
[2023-09-06] MEDS ORDERED: D10W 125 ML IV PRN (22:31)
[2023-09-06] MEDS: PIPER TAZO 3.375 GM in NA CHLORIDE 0.9% 100 ML IV SCH (22:43)
[2023-09-06] MEDS: INSULIN REGULAR (HUMAN) 100 UNIT/ML SQ SCH (23:00)
[2023-09-06] MEDS: MORPHINE 4 MG/ML SYR IV PRN (23:01)
[2023-09-06] MEDS: NA CHLORIDE 0.9% 1,000 ML IV SCH (23:01)
[2023-09-07 00:47] VITALS: BMI 31.8
[2023-09-07] MEDS ORDERED: INSULIN REGULAR (HUMAN) 100 UNIT/ML SQ SCH (07:30)
[2023-09-07] MEDS: glipiZIDE 5 MG TAB PO SCH (08:14)
[2023-09-07] MEDS: LEVOTHYROXINE SOD 0.05 MG TABLET PO SCH (08:15)
[2023-09-07] MEDS: METFORMIN HCL 500 MG TAB PO SCH (08:16)
[2023-09-07] MEDS: VALSARTAN 160 MG TAB PO SCH (08:17)
[2023-09-07] MEDS: carvediloL 12.5 MG TAB PO SCH (08:18)
[2023-09-07] MEDS ORDERED: RIVAROXABAN 20 MG TABLET PO SCH (09:00)
[2023-09-07] MEDS ORDERED: IRBESARTAN 150 MG PO SCH (09:00)
--- NOTE | 2023-09-07 10:00 | P.PN ---
Date of Service: 09/07/23 Subjective Admitted with testicular swelling pain controlled prn analgesia Review of Systems 10-point ROS is otherwise unremarkable Physical Examination - Vital Signs Reviewed - Physical Exam General: Alert, In no apparent distress, Oriented x3 HEENT: Atraumatic, Normocephalic Neck: Supple, 2+ carotid pulse no bruit Respiratory: Clear to auscultation bilaterally, Normal air movement Cardiovascular: Regular rate/rhythm, Normal S1 S2 Capillary refill: <2 Seconds Gastrointestinal: Soft and benign, W/out hepatosplenomegaly, Tenderness Musculoskeletal: No clubbing Integumentary: No rashes, No breakdown Neurological: Normal speech, Normal strength at 5/5 x4 extr, Cranial nerves 3-12 intact, Normal reflexes 2+ Lymphatics: No axilla or inguinal lymphadenopathy External genitalia: right Testicular edema, Tenderness Assessment and Plan - Problems (Diagnosis) Acute epididymitis Hydrocele right side Pain control Ultrasound findings noted Started on IV antibiotic Monitor closely on telemetry Urology consult Scrotal ultrasound FINDINGS: Right testicle measures 3 9 x 3.3 x 3.6 centimeters. Echotexture is homogeneous. Mildly increased flow right testicle Left testicle measures 4.4 x 2.8 x 3.4 centimeters. Echotexture is homogeneous. Normal blood flow Right epididymis is enlarged with moderate increased blood flow. The left epididymis demonstrates normal blood flow. Large complex right hydrocele IMPRESSION: Right epididymitis. Mild right orchitis Large complex right hydrocele Leukocytosis Monitor CBC in a.m. Started on IV antibiotic Cultures Change antibiotic as per sensitivity Hyponatremia Monitor electrolytes and replace accordingly IV hydration Hypertension Antihypertensives titrated Continue home medications and titrate as needed Hyperlipidemia Continue statin Acute kidney injury Renal parameters monitored Diabetes with hyperglycemia Insulin sliding scale Accu-Chek before every meal and at bedtime GI/DVT prophylaxis Advanced directive full code
--- NOTE | 2023-09-07 13:49 | EKG ---
Test Date: 2023-09-06 Test Time: 18:36:10 [employer]: MEASUREMENT RESULTS: Intervals: Rate: 90 NE: 172 QRSD: 94 QT: 364 QTc: 445 [place]: P: 45 NE: 172 QRS: -41 T: 23 INTERPRETIVE STATEMENTS: Normal sinus rhythm Left axis deviation Abnormal ECG Compared to ECG 08/23/2022 16:33:15 No significant changes Electronically Signed On 09-07-23 13:47:59 CDT by Anup Briscoe
[2023-09-07] MEDS: ATORVASTATIN 20 MG TAB PO SCH (21:44)
--- NOTE | 2023-09-07 22:32 | P.CNS ---
Date of Consult: 09/07/23 Reason for Consult: Scrotal swelling and pain Chief Complaint: Pain in scrotum History of Present Illness: 73-year-old gentleman with DM 2, hypertension, hypothyroidism, A-fib status post cardiac ablation on Xarelto who presented to the emergency department with complaints of scrotal/testicular pain and swelling. His provides most of the history in this case, but essentially his symptoms of scrotal swelling began about 5 days ago. Prior to that, he acknowledges having had some dysuria and LUTS as follows: Incomplete emptying/frequency/urgency/nocturia 5 Weak stream 3 Straining 1 Intermittency 0 AUA symptom score 24/35, and he acknowledges the presence of some urge incontinence No known drug allergies Past medical history: As above Past surgical history denies Social history: He never smoked Examination: Patient alert and awake, but poorly responsive, in no acute distress No dyspnea or sign of respiratory distress Right hemiscrotum markedly enlarged and mild to moderately tender with significant hydrocele fluid superiorly and laterally in the right hemiscrotum but no crepitus. Left hemiscrotum reasonably normal with may be mild hydrocele and nontender testis. Phallus uncircumcised with mild posthitis 09/06/2023 WBC 23.3, hemoglobin 11.2, platelets 295, INR 1.87, creatinine 1.40, LFTs/alk phos normal, glucose 316 09/06/2023 scrotal ultrasound impression: Right epididymitis and mild right orchitis. Large complex right hydrocele. Assessment and recommendation: 73-year-old gentleman with DM 2, hypertension, hypothyroidism, A-fib postcardiac ablation on Xarelto and BPH with severe LUTS now complicated by cystitis with epididymoorchitis and reactive right complex hydrocele. -No sign of acute need for surgical intervention at this time. -Agree with IV antimicrobials while management of his diabetes is optimized while awaiting results of cultures -Likely at least 21 to 28 days of total antimicrobial therapy required in this case -Flomax 0.4 mg daily -Recommend follow-up electively as an outpatient for cystoscopic evaluation -Obtain a PSA about 1 week prior to follow-up -If clinically, the patient fails to continue to improve, which will likely take at least 3 to 5 days for the initial improvement, and even 2-3 weeks for resolution of the reactive hydrocele, notify me. Allergies No Known Allergies Allergy (Verified 08/27/22 11:52) Home medications list reviewed: Yes Home Medications: Atorvastatin Calcium [Lipitor] 20 mg PO BEDTIME 02/10/16 Metformin HCl [Glucophage] 1,000 mg PO BID 02/10/16 Nateglinide [Starlix] 120 mg PO TID 02/10/16 Carvedilol [Coreg] 12.5 mg PO BID 07/20/21 Irbesartan 150 mg PO BID 07/20/21 Rivaroxaban [Xarelto] 20 mg PO DAILY 07/20/21 Verapamil HCl [Verelan Pm] 300 mg PO DAILY 07/20/21 glipiZIDE [Glipizide] 10 mg PO BID 07/20/21 Levothyroxine [Synthroid] 50 mcg PO DAILY 09/06/23 - Past Medical/Surgical History Diabetic: Yes -: hypertension -: hypothyroidism -: dyslipidemia -: atrial fibrillation -: cardiac ablation -: hernia repair - Social History Smoking Status: Former smoker Alcohol use: Yes CD- Drugs: No Caffeine use: Yes Place of Residence: Home Physical Examination Temp Pulse Resp BP Pulse Ox 97.9 F 95 H 18 123/58 L 99 09/07/23 20:00 09/07/23 21:44 09/07/23 20:00 09/07/23 21:44 09/07/23 20:00 - Problems (1) Epididymoorchitis Current Visit: Yes Status: Acute (2) Cystitis Current Visit: Yes Status: Acute (3) BPH loc w urin obs/LUTS Current Visit: Yes Status: Acute (4) Right hydrocele Current Visit: Yes Status: Acute Conclusions/Impression: see A&P in HPI Critical Care: No Time Spent Managing Pts care (In Minutes): 30
[2023-09-08] MEDS: HYDROMORPHONE HCL 1 MG/ML INJ IV PRN (03:54)
[2023-09-08] MEDS: ONDANSETRON 4 MG/2 ML VIAL IV PRN (03:55)
--- NOTE | 2023-09-08 06:40 | P.PN ---
Date of Service: 09/08/23 Subjective Reports scrotal swelling, pain control as needed analgesia Review of Systems 10-point ROS is otherwise unremarkable Physical Examination - Vital Signs Reviewed - Physical Exam General: Alert oriented x 3 HEENT: Atraumatic, Normocephalic Neck: Supple, 2+ carotid pulse no bruit Respiratory: Equal unlabored Cardiovascular: Regular rate/rhythm, Normal S1 S2 Capillary refill: <2 Seconds Gastrointestinal: Soft and benign, W/out hepatosplenomegaly, Tenderness Musculoskeletal: No clubbing Neurological: Normal speech, Normal strength at 5/5 x4 extr, Lymphatics: No axilla or inguinal lymphadenopathy External genitalia: right Testicular edema, Tenderness Assessment and Plan - Problems (Diagnosis) Acute epididymitis Hydrocele right side Pain control Ultrasound findings noted Started on IV antibiotic Monitor closely on telemetry Urology consult Scrotal ultrasound FINDINGS: Right testicle measures 3 9 x 3.3 x 3.6 centimeters. Echotexture is homogeneous. Mildly increased flow right testicle Left testicle measures 4.4 x 2.8 x 3.4 centimeters. Echotexture is homogeneous. Normal blood flow Right epididymis is enlarged with moderate increased blood flow. The left epididymis demonstrates normal blood flow. Large complex right hydrocele IMPRESSION: Right epididymitis. Mild right orchitis Large complex right hydrocele Leukocytosis improving Monitor CBC in a.m. Started on IV antibiotic Zosyn Blood cultures no growth, UA pending Change antibiotic as per sensitivity Hyponatremia Monitor electrolytes and replace accordingly IV hydration Hypertension Antihypertensives titrated Continue home medications and titrate as needed Hyperlipidemia Continue statin Acute kidney injury Renal parameters monitored Diabetes with hyperglycemia Insulin sliding scale Accu-Chek before every meal and at bedtime GI/DVT prophylaxis Advanced directive full code
[2023-09-08 06:48] LABS: Absolute Basophils 0.1 K/uL (0-0.5); Absolute Eosinophils 0.2 K/uL (0-0.5); Absolute Lymphocytes (CBC) 1.7 K/uL (0.7-4.9); Absolute Monocytes 1.8 K/uL (0.1-1.3); Absolute Neutrophil 15.9 K/uL (1.8-8.0); Basophils % 0.3 % (0-1.3); Eosinophils % 0.9 % (0-4.4); Hematocrit 29.5 % (39.6-49.0); Hemoglobin 9.7 g/dL (13.6-17.9); Lymphocytes % 8.9 % (15.3-44.8); MCH 24.9 pg (27.0-35.0); MCHC 32.8 g/dL (32.0-36.0); MCV 75.8 fL (80-100); MPV 8.4 fL (7.6-11.3); Monocytes % 9.4 % (3.3-12.3); Neutrophils % 80.5 % (41.7-73.7); Platelets 316 thou/uL (152-406)
[2023-09-08 07:00] LABS: Albumin/Globulin Ratio 0.4 (1.1-1.8); Anion Gap 6.9 mEq/L (5.0-15.0); Bilirubin Total 0.3 mg/dL (0.2-1.0); Globulin 4.7 g/dL (2.3-3.5); Magnesium 1.7 mg/dL (1.6-2.4); Potassium 3.9 mEq/L (3.5-5.1); Protein, Total 6.7 g/dL (6.4-8.2)
[2023-09-08] MEDS: MAGNESIUM SULFATE 1 gm IVPB 1 GM/100 ML BAG IV ONE (08:57)
[2023-09-08] MEDS: POTASSIUM 25 MEQ EFFERV TAB PO ONE (08:57)
[2023-09-08 09:59] LABS: Specific Gravity 1.025 (1.005-1.030); Sqamous Epithelial <5 /HPF (None Seen); Urine Bacteria <20 /HPF (<20); Urine Bilirubin NEGATIVE (Negative); Urine Blood 1+ (Negative); Urine Clarity Clear (Clear); Urine Color Light-Yellow (Yellow); Urine Culture Reflex Order REFLEXED; Urine Glucose TRACE (Negative); Urine Ketones NEGATIVE (Negative); Urine Microscopic Reflex YN ORDER UMIC; Urine Mucus Slight /HPF (None Seen); Urine Nitrite NEGATIVE (Negative); Urine Protein 1+ (Negative); Urine RBC <5 /HPF (None Seen); Urine Urobilinogen Normal (Normal); Urine Yeast (Budding) Trace /HPF (None Seen)
[2023-09-08] MEDS: Mupirocin NASAL 2 APPL/1 GM TUBE NAS SCH (21:29)
--- NOTE | 2023-09-08 22:02 | RAD REPORT ---
EXAM DESCRIPTION: RAD - Chest Single View - 09/08/2023 9:39 pm CLINICAL HISTORY: Device placement PICC line placement . IMPRESSION: PICC line with its tip in the mid superior vena cava
[2023-09-09 00:26] VITALS: O2SAT 99
[2023-09-09 07:05] LABS: Absolute Basophils 0.1 K/uL (0-0.5); Absolute Eosinophils 0.2 K/uL (0-0.5); Absolute Lymphocytes (CBC) 1.9 K/uL (0.7-4.9); Absolute Monocytes 1.2 K/uL (0.1-1.3); Absolute Neutrophil 11.4 K/uL (1.8-8.0); Basophils % 0.5 % (0-1.3); Eosinophils % 1.5 % (0-4.4); Hematocrit 29.2 % (39.6-49.0); Hemoglobin 9.6 g/dL (13.6-17.9); Lymphocytes % 12.6 % (15.3-44.8); MCH 24.8 pg (27.0-35.0); MCHC 32.8 g/dL (32.0-36.0); MCV 75.6 fL (80-100); MPV 8.1 fL (7.6-11.3); Monocytes % 7.9 % (3.3-12.3); Neutrophils % 77.5 % (41.7-73.7); Nucleated Red Blood Cells % 0.1 % (0-0); Platelets 361 thou/uL (152-406); RBC Red Blood Cell Count 3.86 M/uL (4.33-5.43); Red Cell Distribution Width 15.8 % (12.1-15.2)
[2023-09-09 07:11] LABS: Magnesium 1.8 mg/dL (1.6-2.4); Phosphorus 2.9 mg/dL (2.5-4.9)
[2023-09-09] MEDS: MAGNESIUM SULFATE 1 gm IVPB 1 GM/100 ML BAG IV ONE (08:26)
[2023-09-09] MEDS: ALBUMIN HUMAN 25% 100 ML IV ONE (11:54)
[2023-09-09] MEDS: FUROSEMIDE 20 MG/ 2ML VIAL IV SCH (13:08)
[2023-09-09] MEDS: HYDROCODONE/APAP 10/325 TAB PO PRN (14:04)
[2023-09-09] MEDS: CEFTRIAXONE 1,000 MG in NA CHLORIDE 0.9% 50 ML IVPB SCH (15:39)
--- NOTE | 2023-09-09 16:53 | P.DS ---
Admission Date: 09/06/23 Discharge Date: 09/09/23 Disposition: DC HOME/HOME HEALTH CARE Discharge Condition: GOOD Reason for Admission: Pain in scrotum Brief History of Present Illness: 73 yrs old Male with past medical history of Diabetes ,Hypertension, Atrial Fibrillation s/p Cardiac Ablation presents with complaints of Testicular Swelling. Patient is a poor historian hence most of the history is obtained from the chart review and also talking to the ER physician and family member at the bedside. The patient presents with scrotal pain, swelling, tenderness, urinary symptoms, and dysuria. The symptoms/episode began/occurred 5 day ago. Modifying factors: The symptoms are alleviated by remaining still, the symptoms are aggravated by movement, pressure. Associated signs and symptoms: Pertinent positives: abdom inal pain, dysuria. Severity of symptoms: At their worst the symptoms were moderate, in the emergency department the symptoms are unchanged. The patient has not experienced similar symptoms in the past. Patient was assessed in the ER and was admitted for epididymitis - Physical Exam General: Alert, In no apparent distress, Oriented x3 HEENT: Atraumatic, Normocephalic Neck: Supple, 2+ carotid pulse no bruit Respiratory: Clear to auscultation bilaterally, Normal air movement Cardiovascular: Regular rate/rhythm, Normal S1 S2 Capillary refill: <2 Seconds Gastrointestinal: Soft and benign, W/out hepatosplenomegaly, Tenderness Musculoskeletal: No clubbing Integumentary: No rashes, No breakdown Neurological: Normal speech, Normal strength at 5/5 x4 extr, Cranial nerves 3-12 intact, Normal reflexes 2+ Lymphatics: No axilla or inguinal lymphadenopathy External genitalia: Edema, Masses, Tenderness Hospital Course: 73 yrs old Male with past medical history of Diabetes ,Hypertension, Atrial Fibrillation s/p Cardiac Ablation presents with complaints of Testicular Swelling. Was noted to have Acute epididymitis, Hydrocele right side. He was evaluated by urology, Condition improved with IV fluids, IV antibiotics, as needed analgesics. Patient tolerating diet, stable for discharge to home with home health care, follow-up appointment with primary care physician. Follow-up with urology after discharge PROBLEM: Acute epididymitis, Hydrocele right side 28 days of home IV antibiotics. Rocephin IV [id number] with urology after discharge Rad/Lab/Micro: Leukocytosis, UA positive for normal stefany Blood cultures no growth Continue home medicines as previously prescribed GOAL: Clear understanding of disease process INSTRUCTIONS: Physician Discharge Instructions: -Follow-up with PCP in 1 to 2 weeks -Please call Dr. Roblero at [phone] if any questions regarding hospital stay -Please call nursing station at [phone] if any nursing or medication questions -Return to the emergency room if symptoms worsen Diet: ADA, low sodium Activity: Fall precautions Vital Signs/Physical Exam: Temp Pulse Resp BP Pulse Ox 97.2 F 86 16 155/73 H 98 09/09/23 12:00 09/09/23 13:08 09/09/23 14:04 09/09/23 13:08 09/09/23 14:04 Laboratory Data at Discharge: WBC 14.70 thou/uL (4.3-10.9) H 09/09/23 06:00 Hgb 9.6 g/dL (13.6-17.9) L 09/09/23 06:00 Hct 29.2 % (39.6-49.0) L 09/09/23 06:00 Plt Count 361 thou/uL (152-406) 09/09/23 06:00 PT 20.2 SECONDS (9.4-12.5) H 09/06/23 16:50 INR 1.87 09/06/23 16:50 Sodium 134 mEq/L (136-145) L 09/09/23 06:00 Potassium 4.0 mEq/L (3.5-5.1) 09/09/23 06:00 BUN 11 mg/dL (7-18) 09/09/23 06:00 Creatinine 0.99 mg/dL (0.70-1.30) 09/09/23 06:00 Glucose 109 mg/dL (74-106) H 09/09/23 06:00 Phosphorus 2.9 mg/dL (2.5-4.9) 09/09/23 06:00 Magnesium 1.8 mg/dL (1.6-2.4) 09/09/23 06:00 Total Bilirubin 0.3 mg/dL (0.2-1.0) 09/08/23 06:12 AST 31 U/L (15-37) 09/08/23 06:12 ALT 35 U/L (16-61) 09/08/23 06:12 Alkaline Phosphatase 98 U/L (45-117) 09/08/23 06:12 Lipase 17 U/L (13-75) 09/06/23 16:50 Home Medications: Atorvastatin Calcium [Lipitor*] 20 mg PO BEDTIME 02/10/16 Metformin HCl [Glucophage] 1,000 mg PO BID 02/10/16 Nateglinide [Starlix] 120 mg PO TID 02/10/16 Carvedilol [Coreg] 12.5 mg PO BID 07/20/21 Irbesartan 150 mg PO BID 07/20/21 Rivaroxaban [Xarelto] 20 mg PO DAILY 07/20/21 Verapamil HCl [Verelan Pm] 300 mg PO DAILY 07/20/21 glipiZIDE [Glipizide] 10 mg PO BID 07/20/21 Levothyroxine [Synthroid*] 50 mcg PO DAILY 09/06/23 Hydrocodone 10/APAP 325 [[place] 10/325*] 1 tab PO Q6HP PRN #30 tab 09/09/23 Mupirocin Calcium [Bactroban Nasal*] 1 appl CECI TID #1 tube 09/09/23 New Medications: Mupirocin Calcium [Bactroban Nasal*] 1 appl CECI TID #1 tube Hydrocodone 10/APAP 325 [[place] 10/325*] 1 tab PO Q6HP PRN #30 tab PRN Reason: Pain Scale 5-7 (Moderate) Physician Discharge Instructions: Home Health arranged: [facility] ([facility]) P:[phone] F:[phone] Home IV antibiotics arranged: [facility] [place] [address] [address], [place] [address] P/ Shell: [phone] F -DC IV and DC home -Follow-up with PCP in 1 to 2 weeks -Follow-up with Urology in 1 to 2 weeks -Please call Dr. Roblero at [phone] if any questions regarding hospital stay -Please call nursing station at [phone] if any nursing or medication questions -Return to the emergency room if symptoms worsen Diet: AHA Activity: Fall precautions Followup: Theodora MICHELE,Judy Story DO [Primary Care Provider] - Jg Figueroa [ACTIVE - CAN ADMIT] - Time spent managing pt's care (in minutes): 55
[2023-09-09 17:11] VITALS: BP 150/70; TEMP 97
[2023-09-10] MEDS ORDERED: CEFTRIAXONE 1,000 MG in NA CHLORIDE 0.9% 50 ML IVPB SCH (09:00)
== END 2023-09-09 18:00 | disposition home health service (06) | DRG 872 ==
LOC: ER 15:41 → ERHOLD 18:33 → 4TH 18:56
PROVIDERS: ADMIT Family Medicine; ATTEND Hospitalist
PROC: 02HV33Z Insertion of Infusion Device into Superior Vena Cava, Percutaneous Approach (ICD-10-PCS; principal; 2023-09-08)
DX: A41.9 Sepsis, unspecified organism (principal); I48.19 Other persistent atrial fibrillation; N17.9 Acute kidney failure, unspecified; E87.1 Hypo-osmolality and hyponatremia; N13.8 Other obstructive and reflux uropathy; N40.1 Benign prostatic hyperplasia with lower urinary tract symptoms; R65.20 Severe sepsis without septic shock; N45.3 Epididymo-orchitis; I10 Essential (primary) hypertension; E03.9 Hypothyroidism, unspecified; E11.65 Type 2 diabetes mellitus with hyperglycemia; N30.90 Cystitis, unspecified without hematuria; N43.3 Hydrocele, unspecified; E78.5 Hyperlipidemia, unspecified; D72.829 Elevated white blood cell count, unspecified; E66.9 Obesity, unspecified; Z68.31 Body mass index [BMI] 31.0-31.9, adult; Z79.01 Long term (current) use of anticoagulants; Z79.84 Long term (current) use of oral hypoglycemic drugs; Z79.02 Long term (current) use of antithrombotics/antiplatelets; Z79.890 Hormone replacement therapy; Z79.899 Other long term (current) drug therapy; Z87.891 Personal history of nicotine dependence
CPT/HCPCS: 36415; 71045; 76870; 80048; 80053; 80076; 81001; 82140; 82947; 83605; 83690; 83735; 83880; 84100; 84145; 84484; 85025; 85610; 86140; 87040; 87086; 87088; 93005; 93970; 96361; 96365; 96372; 96375; 99285; J0696; J1170; J1650; J1940; J2185; J2405; J2543; J3475; J7030; P9047